=== PATIENT | male | born 1970 | race Caucasian/White ===

== ENCOUNTER 2016-12-27 21:42 | Emergency (ER) | payer OTHER ==
[~2016-12-27] VITALS: Ht 172.7 cm; Wt 86.1 kg
[2016-12-27 22:00] VITALS: TEMP 37.2; Ht 172.7 cm; Wt 86.1 kg
[2016-12-27] MEDS ORDERED: SERT50TA PO (22:01)
[2016-12-27 22:03] VITALS: O2SAT 96
[2016-12-27 22:43] LABS: BUN/CREATININE RATIO 9.6 (10-20); CALCIUM 8.7 mg/dl (8.5-10.1); CREATININE 0.9 mg/dl (0.60-1.40); MAGNESIUM 2.3 mg/dl (1.8-2.4); POTASSIUM 3.6 mmol/L (3.5-5.1)
[2016-12-27 22:55] LABS: HEMATOCRIT 42.2 % (42-52); MEAN CELL VOLUME 92.1 fL (80-100); MEAN CORPUSCULAR HEMOGLOBIN 31.9 pg (25-34); MEAN CORPUSCULAR HGB CONC 34.6 g/dl (32-36); MEAN PLATELET VOLUME 8.9 fL (7.4-10.4); PLATELET COUNT 94 K/uL (130-400); RED BLOOD COUNT 4.58 M/uL (4.7-6.1); WHITE BLOOD COUNT 2.69 K/uL (4.8-10.8)
[2016-12-27 22:56] LABS: BASO % 1.5 %; BASO ABS # 0.04 K/uL (0-0.2); COMPLETE YES; EOS % 1.9 %; IG% 0.4 %; LYMPH % 36.4 %; LYMPH ABS # 0.98 K/uL (1.2-3.4); NEUT % 46.8 %; PLT ESTIMATE DECREASED
[2016-12-28 01:41] VITALS: BP 122/79; PULSE 80; O2SAT 99
--- NOTE | 2016-12-28 05:03 | EMERGENCY ROOM VISIT NOTE ---
History First contact with patient: 21:51 Chief Complaint: ALCOHOL OVERDOSE Stated Complaint: ALCOHOL OVERDOSE Nursing Triage Summary: pt arrived bls from [facility] reported blew 0.362 reports having 12-15 beers reported untreated htn, and depression which he takes zoloft History of Present Illness The patient is a 46 year old male who presents to the Emergency Room with complaints of alcohol intoxication. Patient was found stumbling in the [facility] garage by police and EMS was summoned. Patient is a known alcoholic. Patient denies chest pain, dyspnea, abdominal pain, drug use or any other medical complaints. Patient states he has no one to come get him currently. No history of seizures or DTs from not drinking. Review of Systems See HPI for pertinent positives & negatives. A total of 10 systems reviewed and were otherwise negative. Past Medical/Surgical History Medical Problems: (1) ALCOHOL ABUSE-UNSPEC (2) DEPRESSIVE DISORDER NEC Social History Smoking Status: Never Smoker Alcohol Use: heavy Drug Use: none Marital Status: in relationship Housing Status: lives with family Occupation Status: employed Current/Historical Medications Scheduled Sertraline (Zoloft), 50 MG PO DAILY Allergies Coded Allergies: No Known Allergies (Unverified , 07/20/15) Physical Exam Vital Signs Date Time Temp Pulse Resp B/P (MAP) Pulse Ox O2 Delivery O2 Flow Rate FiO2 12/28/16 01:41 80 16 122/79 99 Room Air 12/27/16 23:00 95 21 93 Room Air 12/27/16 22:03 96 Room Air 12/27/16 22:03 96 Room Air 12/27/16 22:00 37.2 107 18 156/115 96 Room Air 12/27/16 21:53 103 Pain Rating (0-10): 0 Physical Exam PHYSICAL EXAM: VITALS: Vitals are noted on the nurse's note and reviewed by myself. Vital signs stable. GENERAL: Pleasant male with EtOH odor, in no acute distress, nondiaphoretic, well-developed well-nourished. The patient is visibly intoxicated. SKIN: The skin was without obvious lacerations, abrasions, or rashes. There is no tenting of the skin. Capillary reflex less than 2 seconds. HEENT: Normocephalic, atraumatic. PERRLA. EOMI. Conjunctiva with mild injection without icterus. Tympanic membranes without erythema or effusion bilaterally no hemotympanum. External auditory canals are clear. Nares patent bilaterally. No epistaxis. Oropharynx without erythema or exudate. Uvula midline. Oral mucosal moist. No lymphadenopathy. Neck is supple without cervical spine tenderness. HEART: Regular rate and rhythm without murmurs gallops or rubs. Peripheral pulses 2+. LUNGS: Clear to auscultation bilaterally without wheezes, rales or rhonchi. ABDOMEN: Positive bowel sounds x 4. Normal tympanic percussion. Soft, nontender, without masses or organomegaly. MUSCULOSKELETAL: Gross motor function of the upper and lower extremities intact. The patient has a staggering gait. NEUROLOGIC: The patient is visibly intoxicated. Once they were more sober they were alert and oriented to person place and time. Medical Decision & Procedures Laboratory Results 12/27/16 22:16 Red Blood Count 4.58, Mean Corpuscular Volume 92.1, Mean Corpuscular Hemoglobin 31.9, Mean Corpuscular Hemoglobin Concent 34.6, Mean Platelet Volume 8.9, Neutrophils (%) (Auto) 46.8, Lymphocytes (%) (Auto) 36.4, Monocytes (%) (Auto) 13.0, Eosinophils (%) (Auto) 1.9, Basophils (%) (Auto) 1.5, Neutrophils # (Auto ) 1.26, Lymphocytes # (Auto) 0.98, Monocytes # (Auto) 0.35, Eosinophils # (Auto ) 0.05, Basophils # (Auto) 0.04 12/27/16 22:16 Test 12/27/16 22:16 White Blood Count 2.69 K/uL (4.8-10.8) Red Blood Count 4.58 M/uL (4.7-6.1) Hemoglobin 14.6 g/dL (14.0-18.0) Hematocrit 42.2 % (42-52) Mean Corpuscular Volume 92.1 fL (80-100) Mean Corpuscular Hemoglobin 31.9 pg (25-34) Mean Corpuscular Hemoglobin Concent 34.6 g/dl (32-36) Platelet Count 94 K/uL (130-400) Mean Platelet Volume 8.9 fL (7.4-10.4) Neutrophils (%) (Auto) 46.8 % Lymphocytes (%) (Auto) 36.4 % Monocytes (%) (Auto) 13.0 % Eosinophils (%) (Auto) 1.9 % Basophils (%) (Auto) 1.5 % Neutrophils # (Auto) 1.26 K/uL (1.4-6.5) Lymphocytes # (Auto) 0.98 K/uL (1.2-3.4) Monocytes # (Auto) 0.35 K/uL (0.11-0.59) Eosinophils # (Auto) 0.05 K/uL (0-0.5) Basophils # (Auto) 0.04 K/uL (0-0.2) RDW Standard Deviation 45.9 fL (36.4-46.3) RDW Coefficient of Variation 13.9 % (11.5-14.5) Immature Granulocyte % (Auto) 0.4 % Immature Granulocyte # (Auto) 0.01 K/uL (0.00-0.02) Platelet Estimate DECREASED Red Blood Cell Morphology Unremarkable Anion Gap 13.0 mmol/L (3-11) Est Creatinine Clear Calc Drug Dose 107.1 ml/min Estimated GFR () 116.6 Estimated GFR (Non- 100.6 BUN/Creatinine Ratio 9.6 (10-20) Calcium Level 8.7 mg/dl (8.5-10.1) Magnesium Level 2.3 mg/dl (1.8-2.4) Ethyl Alcohol mg/dL 408.0 mg/dl (0-3) ED Course Prior records/ancillary studies reviewed. Triage Nursing notes reviewed. Additional history obtained from EMS. The patient's history was concerning for altered mental status and a possible alcohol overdose. Differential diagnosis: Etiologies such as alcohol intoxication, toxicologic, infection, hypoglycemia, electrolyte abnormalities, cardiac sources, intracerebral event, neurologic, as well as others were entertained. Physical examination: As above. The patient is clinically intoxicated. no trauma noted. ER treatment provided: Monitoring Aspiration precautions The patient was frequently reassessed. Diagnostic interpretation by me: Cardiac monitoring did not reveal any evidence of dysrhythmia. The labs reviewed. The patient's blood alcohol level was 400 mg/dL. The patient's history was reviewed once they were more coherent and their intoxication cleared. The patient states they have been in good health recently and had no medical complaints. The patient admitted to consuming alcohol. No additional concerning findings were noted. The patient complained of no symptoms to suggest assault. This appears to be consistent with an isolated overdose of alcohol. By the evaluation outlined above emergent etiologies such as trauma, infection, hypoglycemia, electrolyte abnormalities, cardiac sources, intracerebral event, neurologic,as well as others were deemed relatively unlikely. Patient was discharged home in the care of his family. The patient was informed about the findings as listed above. The patient was counseled on the dangers of excessive alcohol use. I gave my usual and customary discussion regarding this issue. All questions were answered and the patient was pleased with the treatment. Return instructions were outlined and the patient was discharged in stable condition once their mental status improved and a safe destination was confirmed. Outpatient prescription management: None Referral: The patient was referred back to their primary care physician for follow-up in 2 to 3 days for a recheck of their current condition. Medical Decision As above Impression Primary Impression: Alcohol abuse Departure Information Dispostion Home / Self-Care Condition GOOD Referrals Yosef Sultana M.D. Forms HOME CARE DOCUMENTATION FORM, IMPORTANT VISIT INFORMATION Patient Instructions Alcohol Abuse - [facility] Additional Instructions Keep well-hydrated. Follow up with family doctor as needed. No driving for the next 24 hours. Recommend no alcohol for the next 48 hours and avoid binge drinking in the future. Return to ER sooner for chest pain, abdominal pain, worsening signs or symptoms or as needed.
== END 2016-12-28 01:49 | disposition home or self-care (01) ==
LOC: EDBD 21:42 → C.EDC 21:47
DX: F10.10 Alcohol abuse, uncomplicated (principal); I10 Essential (primary) hypertension; F32.9 Major depressive disorder, single episode, unspecified; Z79.899 Other long term (current) drug therapy

== ENCOUNTER 2017-03-31 22:25 | Inpatient (IN) | payer OTHER ==
[~2017-03-31] VITALS: Ht 162.6 cm; Wt 85.1 kg
[~2017-03-31 22:25] MED LIST: SERT50TA PO
--- NOTE | 2017-03-31 23:24 | EMERGENCY ROOM VISIT NOTE ---
History Report prepared by Will: Judy Root Under the Supervision of: Dr. Oliver Lopez M.D. First contact with patient: 23:14 Chief Complaint: DETOX REQUEST Stated Complaint: ALCOHOLISM Nursing Triage Summary: Patient is requesting medical detox of ETOH. History of Present Illness The patient is a 46 year old male who presents to the Emergency Room with complaints of an alcohol detox request beginning today. The patient states that he feels uncomfortable telling doctors how much he drinks, but states that he drinks a lot. He reports that he only drinks beer. He reports that he was sober for 6 months 4 years ago. The patient states that his last drink was shortly prior to arrival. The patient denies a history of seizures, but states that he shakes in the morning when he does not have alcohol. He reports that he goes to AA meetings, and that sometimes he goes twice a day. The patient reports that he usually has a cough in the morning from post-nasal drip. The patient denies falls and injuries. He also denies suicidal ideation and hallucinations. The patient denies a family history of alcoholism. He reports that he has a history of depression, and states that he takes Zoloft. The patient denies a history of strokes and heart attacks. Source of History: patient Onset: today Position: other (global) Quality: other (alcohol detox) Associated Symptoms: + cough Review of Systems See HPI for pertinent positives & negatives. A total of 10 systems reviewed and were otherwise negative. Past Medical & Surgical Medical Problems: (1) ALCOHOL ABUSE-UNSPEC (2) DEPRESSIVE DISORDER NEC Family History No pertinent family history stated. Social History Smoking Status: Never Smoker Alcohol Use: heavy Drug Use: none Marital Status: in relationship Housing Status: lives with family Occupation Status: employed Current/Historical Medications Scheduled Sertraline (Zoloft), 50 MG PO DAILY Allergies Coded Allergies: No Known Allergies (Unverified , 04/01/17) Physical Exam Vital Signs Date Time Temp Pulse Resp B/P (MAP) Pulse Ox O2 Delivery O2 Flow Rate FiO2 04/01/17 00:39 112 14 170/101 97 Room Air 03/31/17 22:43 36.4 95 18 158/105 96 Room Air Physical Exam GENERAL: Patient is mildly intoxicated. Smells of alcohol. Well appearing and in no acute distress. HEAD: No evidence of Trauma. AT/NC EYES: Injected conjunctiva. Normal EOM. Pupils equal/reactive. ENT: Mucous membranes moist, no nasal congestion, . NECK: No step-offs, no adenopathy, no meningismus, trachea is midline. LUNGS: No dyspnea. Clear to auscultation and equal bilaterally. No wheeze, no rhonchi. HEART: Regular rate and rhythm. No murmurs, rubs, gallops appreciated. ABDOMEN: Soft, nontender, bowel sounds positive, no masses appreciated, no peritonitis. BACK: No midline tenderness, no CVA tenderness EXTREMITIES: Normal motion all extremities, no cyanosis, no edema. NEUROLOGIC: Intoxicated. Alert, oriented. No acute motor or sensory deficits, no focal weakness, cranial nerves grossly intact. Mild left facial droop ( chronic). SKIN: No rash, no jaundice, no diaphoresis. Medical Decision & Procedures Laboratory Results 03/31/17 23:40 Red Blood Count 4.92, Mean Corpuscular Volume 93.1, Mean Corpuscular Hemoglobin 33.7, Mean Corpuscular Hemoglobin Concent 36.2, Mean Platelet Volume 10.0, Neutrophils (%) (Auto) 52.1, Lymphocytes (%) (Auto) 33.1, Monocytes (%) (Auto) 11.6, Eosinophils (%) (Auto) 2.5, Basophils (%) (Auto) 0.7, Neutrophils # (Auto ) 2.28, Lymphocytes # (Auto) 1.45, Monocytes # (Auto) 0.51, Eosinophils # (Auto ) 0.11, Basophils # (Auto) 0.03 Test 03/31/17 23:40 04/01/17 00:00 White Blood Count 4.38 K/uL (4.8-10.8) Red Blood Count 4.92 M/uL (4.7-6.1) Hemoglobin 16.6 g/dL (14.0-18.0) Hematocrit 45.8 % (42-52) Mean Corpuscular Volume 93.1 fL (80-100) Mean Corpuscular Hemoglobin 33.7 pg (25-34) Mean Corpuscular Hemoglobin Concent 36.2 g/dl (32-36) Platelet Count 137 K/uL (130-400) Mean Platelet Volume 10.0 fL (7.4-10.4) Neutrophils (%) (Auto) 52.1 % Lymphocytes (%) (Auto) 33.1 % Monocytes (%) (Auto) 11.6 % Eosinophils (%) (Auto) 2.5 % Basophils (%) (Auto) 0.7 % Neutrophils # (Auto) 2.28 K/uL (1.4-6.5) Lymphocytes # (Auto) 1.45 K/uL (1.2-3.4) Monocytes # (Auto) 0.51 K/uL (0.11-0.59) Eosinophils # (Auto) 0.11 K/uL (0-0.5) Basophils # (Auto) 0.03 K/uL (0-0.2) RDW Standard Deviation 43.8 fL (36.4-46.3) RDW Coefficient of Variation 13.0 % (11.5-14.5) Immature Granulocyte % (Auto) 0.0 % Immature Granulocyte # (Auto) 0.00 K/uL (0.00-0.02) Prothrombin Time 10.6 SECONDS (9.0-12.0) Prothromb Time International Ratio 1.0 (0.9-1.1) Magnesium Level 2.3 mg/dl (1.8-2.4) Total Bilirubin 0.6 mg/dl (0.2-1) Aspartate Amino Transf (AST/SGOT) 37 U/L (15-37) Alanine Aminotransferase (ALT/SGPT) 36 U/L (12-78) Alkaline Phosphatase 48 U/L (45-117) Total Protein 7.7 gm/dl (6.4-8.2) Albumin 3.8 gm/dl (3.4-5.0) Globulin 3.9 gm/dl (2.5-4.0) Albumin/Globulin Ratio 1.0 (0.9-2) Thyroid Stimulating Hormone (TSH) 3.610 uIu/ml (0.300-4.500) Salicylates Level < 1.7 mg/dl (2.8-20) Acetaminophen Level < 2 ug/ml (10-30) Ethyl Alcohol mg/dL 292.0 mg/dl (0-3) Urine Color YELLOW Urine Appearance CLEAR (CLEAR) Urine pH 6.0 (4.5-7.5) Urine Specific [place] 1.011 (1.000-1.030) Urine Protein NEG (NEG) Urine Glucose (UA) NEG (NEG) Urine Ketones NEG (NEG) Urine Occult Blood NEG (NEG) Urine Nitrite NEG (NEG) Urine Bilirubin NEG (NEG) Urine Urobilinogen NEG (NEG) Urine Leukocyte Esterase NEG (NEG) Urine WBC (Auto) 0 /hpf (0-5) Urine RBC (Auto) 0-4 /hpf (0-4) Urine Hyaline Casts (Auto) 0 /lpf (0-5) Urine Epithelial Cells (Auto) 0-5 /lpf (0-5) Urine Bacteria (Auto) NEG (NEG) Urine Opiates Screen NEG (NEG) Urine Methadone, Qualitative NEG (NEG) Urine Barbiturates NEG (NEG) Urine Phencyclidine (PCP) Level NEG (NEG) Ur Amphetamine/Methamphetamine NEG (NEG) MDMA (Ecstasy) Screen NEG (NEG) Urine Benzodiazepines Screen NEG (NEG) Urine Cocaine Metabolite NEG (NEG) Urine Marijuana (THC) NEG (NEG) Laboratory results as reviewed by me. Medications Administered Medications (Trade) Dose Ordered Sig/Venkat Route Start Time Stop Time Status Last Admin Dose Admin Multivitamins 10 ml/Thiamine HCl 100 mg/Folic Acid 1 mg/Sodium Chloride 1,011.2 ml @ 500 mls/ hr Q2H2M ONCE IV 03/31/17 23:30 04/01/17 01:31 DC 04/01/17 00:08 500 MLS/HR ED Course 2318: The patient was evaluated in room A8. A complete history and physical exam was performed. 2330: Ordered Multivitamins 10 ml/Thiamine HCl 100 mg/ Folic Acid 1 mg/Sodium Chloride 1,011.2 ml @ 500 mls/hr IV. 0045: Discussed the patient's case with Dr. Wagner. The patient will be evaluated for further treatment and disposition. 0050: Upon reevaluation, the patient is resting. Discussed results and treatment plan with the patient. He verbalized understanding and agreement with the treatment plan. The patient will be evaluated for further management. Medical Decision 46 yr old alcoholic male who arrives intoxicated requesting help with detox. He notes recently went to PCP which resulted in his [employer] driver's license being suspended. This has lead to him questioning life though he denies suicidal/ homicidal ideation. Drinking case of beer daily for 4 years. No pause long enough to have full DTs though notes even awaking in am needs etoh to function without shaking. Suspect he would be prime candidate to have fulminant DTs if this is the case. Clearly not doing well with getting in to rehab and I suspect no rehab will take him until he is medically clear. With inability to get this figured out at this hour I have asked hospitalist evaluation of patient. Pt given banana bag given history. No clear electrolyte nor liver issues by lab at least. No other drugs in system. Etoh quite elevated for someone that appears as sober as he dose. Medication Reconcilliation Current Medication List: was personally reviewed by me Blood Pressure Screening Patient's blood pressure: Elevated blood pressure Will be monitored by hospitalist. Consults Time Called: 9 Consulting Physician: Dr. Wagner Returned Call: [phone] Discussed the patient's case. The patient will be evaluated for further treatment and disposition. Impression Primary Impression: Alcohol withdrawal Additional Impression: Depression Scribe Attestation The scribe's documentation has been prepared under my direction and personally reviewed by me in its entirety. I confirm that the note above accurately reflects all work, treatment, procedures, and medical decision making performed by me. Departure Information Dispostion Being Evaluated By Hospitalist Referrals Zhang Weinstein MD (PCP) Patient Instructions My [facility] Problem Qualifiers
[2017-03-31] MEDS ORDERED: MULTI-VITAMIN INFUSION INJ 10 ML, THIAMINE HCL INJ 100 MG, FoLIC ACID INJ 1 MG in SODIU... IV ONE (23:30)
[2017-03-31 23:53] LABS: BASO % 0.7 %; BASO ABS # 0.03 K/uL (0-0.2); COMPLETE YES; EOS % 2.5 %; HEMATOCRIT 45.8 % (42-52); LYMPH % 33.1 %; LYMPH ABS # 1.45 K/uL (1.2-3.4); MEAN CELL VOLUME 93.1 fL (80-100); MEAN CORPUSCULAR HEMOGLOBIN 33.7 pg (25-34); MEAN CORPUSCULAR HGB CONC 36.2 g/dl (32-36); MONO % 11.6 %; NEUT % 52.1 %; PLATELET COUNT 137 K/uL (130-400); RED BLOOD COUNT 4.92 M/uL (4.7-6.1); WHITE BLOOD COUNT 4.38 K/uL (4.8-10.8)
[2017-04-01] VITALS (13 sets, daily range): BP systolic 128–184; BP diastolic 77–100; PULSE 60–107; TEMP 36.6–37.3; O2SAT 92–98; Ht 162.6 cm; Wt 85.1 kg
[2017-04-01 00:16] LABS: BUN/CREATININE RATIO 6.9 (10-20); CALCIUM 8.5 mg/dl (8.5-10.1); CREATININE 0.89 mg/dl (0.60-1.40); MAGNESIUM 2.3 mg/dl (1.8-2.4); POTASSIUM 3.6 mmol/L (3.5-5.1)
[2017-04-01 00:27] LABS: THYROID STIMULATING HORMONE 3.61 uIu/ml (0.300-4.500)
[2017-04-01 00:36] LABS: MANUAL MICROSCOPIC REQUIRED? NO; REVIEW REQ? NO; URINE APPEARANCE CLEAR (CLEAR); URINE BILIRUBIN NEG (NEG); URINE COLOR YELLOW; URINE EPITHELIAL CELL AUTO 0-5 /lpf (0-5); URINE NITRITE NEG (NEG); URINE SPECIFIC GRAVITY 1.011 (1.000-1.030); UROBILINOGEN NEG (NEG); ZZUR CULT IF INDIC CLEAN CATCH NO
[2017-04-01 00:38] LABS: ACETAMINOPHEN < 2 ug/ml (10-30)
--- NOTE | 2017-04-01 00:53 | History and Physical ---
History & Physical Date & Time of Service: Apr 01, 2017 at 00:53 Chief Complaint: Alcoholism Primary Care Physician: No Doctor, Assigned History of Present Illness Source: patient Patient is a 46 yr male with PMH of alcohol abuse disorder and depression presents with history of ongoing alcohol abuse, Insomnia and requests to get alcohol detox. Patient was previously at [facility] 4 yrs ago for inpatient rehab but relapsed within 6 months duration. She states he drinks at least a case of beer on daily basis and states he had problems with sleep and undergoes through DTs everyday. Denies any history of seizures. He attends AA meetings. Denies any history of headache, head trauma, falls, LOC, hallucinations, suicidal ideation. Also denies any history of chest pain, SOB, palpitations, dizziness, pedal edema, fever, chills, change in vision, nausea, vomiting, abdominal pain, diarrhea, dysuria. Past Medical/Surgical History Medical Problems: (1) ALCOHOL ABUSE-UNSPEC Status: Resolved (2) DEPRESSIVE DISORDER NEC Status: Chronic Family History Father: CHF, DM Mother:Lupus, CHF Social History Smoking Status: Never Smoker Smokeless Tobacco Use: Yes Alcohol Use: heavy Drug Use: none Marital Status: in relationship Occupational Status: employed Multi-Drug Resistant Organisms History of MDRO: No Allergies Coded Allergies: No Known Allergies (Unverified , 04/01/17) Home Medications Scheduled Sertraline (Zoloft), 50 MG PO DAILY Review of Systems See HPI for pertinent positives & negatives. A total of 10 systems reviewed and were otherwise negative. Physical Exam Vital Signs Date Time Temp Pulse Resp B/P (MAP) Pulse Ox O2 Delivery O2 Flow Rate FiO2 04/01/17 00:39 112 14 170/101 97 Room Air 03/31/17 22:43 36.4 95 18 158/105 96 Room Air General Appearance: WD/WN, no apparent distress Head: normocephalic, atraumatic Eyes: normal inspection, PERRL, EOMI, sclerae normal ENT: normal ENT inspection, hearing grossly normal Neck: supple, no JVD, trachea midline Respiratory/Chest: chest non-tender, lungs clear, normal breath sounds, no respiratory distress, no accessory muscle use Cardiovascular: regular rate, rhythm, no edema, no murmur Abdomen/GI: normal bowel sounds, non tender, soft Back: normal inspection Extremities/Musculoskelatal: normal inspection, no pedal edema Neurologic/Psych: counter attendant II-XII nml as tested, no motor/sensory deficits, alert, normal mood/affect, oriented x 3 Skin: normal color, warm/dry Diagnostics Laboratory Results Results Past 24 Hours Test 03/31/17 23:40 04/01/17 00:00 Range/Units White Blood Count 4.38 4.8-10.8 K/uL Red Blood Count 4.92 4.7-6.1 M/uL Hemoglobin 16.6 14.0-18.0 g/dL Hematocrit 45.8 42-52 % Mean Corpuscular Volume 93.1 80-100 fL Mean Corpuscular Hemoglobin 33.7 25-34 pg Mean Corpuscular Hemoglobin Concent 36.2 32-36 g/dl Platelet Count 137 130-400 K/uL Mean Platelet Volume 10.0 7.4-10.4 fL Neutrophils (%) (Auto) 52.1 % Lymphocytes (%) (Auto) 33.1 % Monocytes (%) (Auto) 11.6 % Eosinophils (%) (Auto) 2.5 % Basophils (%) (Auto) 0.7 % Neutrophils # (Auto) 2.28 1.4-6.5 K/uL Lymphocytes # (Auto) 1.45 1.2-3.4 K/uL Monocytes # (Auto) 0.51 0.11-0.59 K/uL Eosinophils # (Auto) 0.11 0-0.5 K/uL Basophils # (Auto) 0.03 0-0.2 K/uL RDW Standard Deviation 43.8 36.4-46.3 fL RDW Coefficient of Variation 13.0 11.5-14.5 % Immature Granulocyte % (Auto) 0.0 % Immature Granulocyte # (Auto) 0.00 0.00-0.02 K/uL Sodium Level 139 136-145 mmol/L Potassium Level 3.6 3.5-5.1 mmol/L Chloride Level 101 98-107 mmol/L Carbon Dioxide Level 25 21-32 mmol/L Anion Gap 13.0 3-11 mmol/L Blood Urea Nitrogen 6 7-18 mg/dl Creatinine 0.89 0.60-1.40 mg/dl Est Creatinine Clear Calc Drug Dose 100.4 ml/min Estimated GFR () 117.2 Estimated GFR (Non- 101.1 BUN/Creatinine Ratio 6.9 10-20 Random Glucose 88 70-99 mg/dl Calcium Level 8.5 8.5-10.1 mg/dl Magnesium Level 2.3 1.8-2.4 mg/dl Total Bilirubin 0.6 0.2-1 mg/dl Aspartate Amino Transf (AST/SGOT) 37 15-37 U/L Alanine Aminotransferase (ALT/SGPT) 36 12-78 U/L Alkaline Phosphatase 48 45-117 U/L Total Protein 7.7 6.4-8.2 gm/dl Albumin 3.8 3.4-5.0 gm/dl Globulin 3.9 2.5-4.0 gm/dl Albumin/Globulin Ratio 1.0 0.9-2 Thyroid Stimulating Hormone (TSH) 3.610 0.300-4.500 uIu/ml Salicylates Level < 1.7 2.8-20 mg/dl Acetaminophen Level < 2 10-30 ug/ml Ethyl Alcohol mg/dL 292.0 0-3 mg/dl Urine Color YELLOW Urine Appearance CLEAR CLEAR Urine pH 6.0 4.5-7.5 Urine Specific [place] 1.011 1.000-1.030 Urine Protein NEG NEG Urine Glucose (UA) NEG NEG Urine Ketones NEG NEG Urine Occult Blood NEG NEG Urine Nitrite NEG NEG Urine Bilirubin NEG NEG Urine Urobilinogen NEG NEG Urine Leukocyte Esterase NEG NEG Urine WBC (Auto) 0 0-5 /hpf Urine RBC (Auto) 0-4 0-4 /hpf Urine Hyaline Casts (Auto) 0 0-5 /lpf Urine Epithelial Cells (Auto) 0-5 0-5 /lpf Urine Bacteria (Auto) NEG NEG Impression Assessment and Plan Alcohol Abuse disorder: Alcohol level:292 Tox Screen: negative Monitor for withdrawal seizure precautions Alcohol withdrawal protocol with gabapentin, Ativan PRN Check Vitam, B12, Thiamine levels Banana Bag LFTs normal Hypertension: Not on meds as out patient Labetalol PRN Depression/Insomnia: Continue Zoloft DVT Px: Lovenox SQ Code Status: Full Code
[2017-04-01 00:55] LABS: BENZODIAZEPINE, URINE NEG (NEG); COCAINE,URINE NEG (NEG); PHENCYCLIDINE, URINE NEG (NEG)
[2017-04-01] MEDS ORDERED: ONDANSETRON INJ 2 MG/ML 2 ML VIAL IV PRN (01:00)
[2017-04-01] MEDS ORDERED: ACETAMINOPHEN 325 MG TAB PO PRN (01:00)
[2017-04-01] MEDS ORDERED: LABETALOL HCL IV 5 MG/ML 20ML IV PRN (01:30)
[2017-04-01] MEDS ORDERED: LORAZEPAM 1 MG TAB PO PRN (01:30)
[2017-04-01] MEDS ORDERED: LORAZEPAM 2 MG/ML 1 ML VIAL IV PRN (01:30)
[2017-04-01] MEDS ORDERED: GABAPENTIN 600 MG TAB PO STA (02:07)
[2017-04-01 03:07] LABS: PROTHROMBIN TIME (PATIENT) 10.6 SECONDS (9.0-12.0)
[2017-04-01 03:18] LABS: BUN/CREATININE RATIO 6.2 (10-20); CALCIUM 8.1 mg/dl (8.5-10.1); CREATININE 0.96 mg/dl (0.60-1.40); POTASSIUM 3.9 mmol/L (3.5-5.1)
[2017-04-01] MEDS ORDERED: INFLUENZA VIRUS QUAD VACCINE 0.5 ML SYR IM. ONE (03:30)
[2017-04-01] MEDS ORDERED: INFLUENZA ADMINISTRATION CHARGE ONE (03:30)
[2017-04-01] MEDS: GABAPENTIN 600MG Q6H DOSE PO SCH ×2 (07:47→15:04)
[2017-04-01] MEDS: SERTRALINE HCL 50 MG TAB PO SCH (09:28)
[2017-04-01] MEDS: ENOXAPARIN 40 MG/0.4 ML SYR SC SCH (09:32)
[2017-04-01] MEDS: NICOTINE 21 MG/24 HR TDSY TD SCH (09:33)
[2017-04-01] MEDS: MULTI-VITAMIN INFUSION INJ 10 ML, THIAMINE HCL INJ 100 MG, FoLIC ACID INJ 1 MG in SODIU... IV SCH (10:15)
[2017-04-01] MEDS: LORAZEPAM INJ 1 MG in SYRINGE 0.5 ML IV PRN ×3 (10:23→21:13)
--- NOTE | 2017-04-01 10:23 | Progress Note ---
Medicine Progress Note Date & Time of Visit: Apr 01, 2017 at 10:16. Subjective seen resting in bed, comfortable alert, oriented x 3, pleasant states he feels somewhat anxious- used to being "on the go", also having "fear of the unknown" in terms of Alcohol rehab denies hallucinations, sweating, palpitations, chest pain, dizziness no other symptoms Objective Last 8 Hrs Date Time Temp Pulse Resp B/P (MAP) Pulse Ox O2 Delivery O2 Flow Rate FiO2 04/01/17 08:00 96 Room Air 04/01/17 07:25 36.6 107 16 142/99 (113) 96 04/01/17 03:13 98 Room Air 04/01/17 03:01 36.7 96 16 128/77 (94) 96 Room Air 04/01/17 02:21 80 162/100 (120) Physical Exam: General- oriented x 3, not in distress, speaks in sentences with no effort Head- atraumatic Eyes- PERRL, EOMI, anicteric ENT- oropharynx clear Neck- supple, no JVD, no adenopathy, no thyromegaly Lungs- clear to auscultation b/l Heart- regular rhythm; no murmur, normal rate Abdomen- normal bowel sounds, soft, nontender Extremities- no pretibial edema, no calf tenderness, mild hand tremors Neuro- alert, oriented x 3 no gross focal deficits, Skin- warm & dry Psych- denies depression symptoms, feels somewhat anxious, denies suicidality Laboratory Results: Last 24 Hours Test 03/31/17 23:40 04/01/17 00:00 04/01/17 02:45 White Blood Count 4.38 K/uL Red Blood Count 4.92 M/uL Hemoglobin 16.6 g/dL Hematocrit 45.8 % Mean Corpuscular Volume 93.1 fL Mean Corpuscular Hemoglobin 33.7 pg Mean Corpuscular Hemoglobin Concent 36.2 g/dl Platelet Count 137 K/uL Mean Platelet Volume 10.0 fL Neutrophils (%) (Auto) 52.1 % Lymphocytes (%) (Auto) 33.1 % Monocytes (%) (Auto) 11.6 % Eosinophils (%) (Auto) 2.5 % Basophils (%) (Auto) 0.7 % Neutrophils # (Auto) 2.28 K/uL Lymphocytes # (Auto) 1.45 K/uL Monocytes # (Auto) 0.51 K/uL Eosinophils # (Auto) 0.11 K/uL Basophils # (Auto) 0.03 K/uL RDW Standard Deviation 43.8 fL RDW Coefficient of Variation 13.0 % Immature Granulocyte % (Auto) 0.0 % Immature Granulocyte # (Auto) 0.00 K/uL Prothrombin Time 10.6 SECONDS Prothromb Time International Ratio 1.0 Sodium Level 139 mmol/L 143 mmol/L Potassium Level 3.6 mmol/L 3.9 mmol/L Chloride Level 101 mmol/L 105 mmol/L Carbon Dioxide Level 25 mmol/L 28 mmol/L Anion Gap 13.0 mmol/L 10.0 mmol/L Blood Urea Nitrogen 6 mg/dl 6 mg/dl Creatinine 0.89 mg/dl 0.96 mg/dl Est Creatinine Clear Calc Drug Dose 100.4 ml/min 92.1 ml/min Estimated GFR () 117.2 107.9 Estimated GFR (Non- 101.1 93.1 BUN/Creatinine Ratio 6.9 6.2 Random Glucose 88 mg/dl 91 mg/dl Calcium Level 8.5 mg/dl 8.1 mg/dl Magnesium Level 2.3 mg/dl Total Bilirubin 0.6 mg/dl Aspartate Amino Transf (AST/SGOT) 37 U/L Alanine Aminotransferase (ALT/SGPT) 36 U/L Alkaline Phosphatase 48 U/L Total Protein 7.7 gm/dl Albumin 3.8 gm/dl Globulin 3.9 gm/dl Albumin/Globulin Ratio 1.0 Thyroid Stimulating Hormone (TSH) 3.610 uIu/ml Salicylates Level < 1.7 mg/dl Acetaminophen Level < 2 ug/ml Ethyl Alcohol mg/dL 292.0 mg/dl Urine Color YELLOW Urine Appearance CLEAR Urine pH 6.0 Urine Specific [place] 1.011 Urine Protein NEG Urine Glucose (UA) NEG Urine Ketones NEG Urine Occult Blood NEG Urine Nitrite NEG Urine Bilirubin NEG Urine Urobilinogen NEG Urine Leukocyte Esterase NEG Urine WBC (Auto) 0 /hpf Urine RBC (Auto) 0-4 /hpf Urine Hyaline Casts (Auto) 0 /lpf Urine Epithelial Cells (Auto) 0-5 /lpf Urine Bacteria (Auto) NEG Urine Opiates Screen NEG Urine Methadone, Qualitative NEG Urine Barbiturates NEG Urine Phencyclidine (PCP) Level NEG Ur Amphetamine/Methamphetamine NEG MDMA (Ecstasy) Screen NEG Urine Benzodiazepines Screen NEG Urine Cocaine Metabolite NEG Urine Marijuana (THC) NEG Vitamin B12 Level 610 pg/mL Folate > 24.00 ng/mL Assessment & Plan 46 year old male with history of Alcoholism, Depression, Smoking presenting with alcohol intoxication. ALCOHOL INTOXICATION ALCOHOLISM - has mild tremors and anxiety - on Alcohol withdrawal protocol including Gabapentin taper, Ativan PRN based on scoring system add Ativan IV PRN for anxiety on Banana Bag then NSS - case management consulted as patient requesting referral to Rehab program HISTORY OF DEPRESSION - states mood is fine except for anxiety - also, QT prolonged at 490 and is on Sertraline repeat EKG today - Psych consulted - monitor in Tele HISTORY OF SMOKING - in nicotine patch HYPERTENSION - no history in the past essential hypertension vs. stress - monitor - PRN clonidine for now DVT proph Lovenox Full Code Dispo patient requesting referral to rehab Current Inpatient Medications: Current Inpatient Medications Medications (Trade) Dose Ordered Sig/Venkat Route Start Time Stop Time Status Last Admin Dose Admin Enoxaparin Sodium (Lovenox Inj) 40 mg Q24H SC 04/01/17 09:00 05/01/17 08:59 04/01/17 09:32 40 MG Acetaminophen (Tylenol Tab) 650 mg Q4H PRN PO 04/01/17 01:00 05/01/17 00:59 Ondansetron HCl (Zofran Inj) 4 mg Q6H PRN IV 04/01/17 01:00 05/01/17 00:59 Sertraline HCl (Zoloft Tab) 100 mg DAILY PO 04/01/17 09:00 05/01/17 08:59 04/01/17 09:28 100 MG Lorazepam (Ativan Tab) PRN Dosing -Active Protocol UD PRN PO 04/01/17 01:30 05/01/17 01:29 Lorazepam (Ativan Inj) 1 mg ONE PRN IV 04/01/17 01:30 Multivitamins 10 ml/Thiamine HCl 100 mg/Folic Acid 1 mg/Sodium Chloride 1,011.2 ml @ 100 mls/ hr DAILY IV 04/01/17 09:00 04/06/17 08:59 Nicotine (Nicoderm Cq 21MG Patch) 1 patch QAM TD 04/01/17 09:00 05/01/17 08:59 04/01/17 09:33 1 PATCH Miscellaneous (Remove Nicoderm Patch) 1 ea HS N/A 04/01/17 21:00 05/01/17 20:59 Labetalol HCl (Normodyne IV) 10 mg Q6H PRN IV 04/01/17 01:30 05/01/17 01:29 04/01/17 02:45 10 MG Gabapentin (Neurontin Tab) 600 mg Q6H PO 04/01/17 08:00 04/01/17 14:01 04/01/17 07:47 600 MG Gabapentin (Neurontin Tab) 600 mg Q8H PO 04/01/17 22:00 04/02/17 14:01 Gabapentin (Neurontin Tab) 600 mg Q12H PO 04/03/17 02:00 04/03/17 14:01 Gabapentin (Neurontin Tab) 600 mg Q24H PO 04/04/17 14:00 04/04/17 14:01 Lorazepam 1 mg/ Syringe 1 ml @ 0.5 mls/min Q4H PRN IV 04/01/17 10:00 05/01/17 09:59
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
[2017-04-01] MEDS: CLONIDINE HCL 0.1 MG TAB PO PRN (15:27)
[2017-04-01] MEDS: NSS + 20MEQ KCL 1000ML 1,000 ML IV SCH ×2 (19:44→19:53)
[2017-04-01] MEDS: GABAPENTIN 600MG Q8H DOSE PO SCH (21:14)
[2017-04-02] VITALS (10 sets, daily range): BP systolic 124–169; BP diastolic 84–103; PULSE 60–79; TEMP 36.6–36.9; O2SAT 95–98
[2017-04-02] MEDS: CLONIDINE HCL 0.1 MG TAB PO PRN ×3 (04:40→21:18)
[2017-04-02] MEDS: GABAPENTIN 600MG Q8H DOSE PO SCH ×2 (06:07→14:47)
[2017-04-02] MEDS: NSS + 20MEQ KCL 1000ML 1,000 ML IV SCH ×2 (06:07→17:57)
[2017-04-02 06:36] LABS: BASO % 0.7 %; BASO ABS # 0.03 K/uL (0-0.2); COMPLETE YES; EOS % 1.9 %; HEMATOCRIT 41.3 % (42-52); IG% 0.2 %; LYMPH % 18.4 %; LYMPH ABS # 0.79 K/uL (1.2-3.4); MEAN CELL VOLUME 95.8 fL (80-100); MEAN CORPUSCULAR HEMOGLOBIN 33.4 pg (25-34); MEAN CORPUSCULAR HGB CONC 34.9 g/dl (32-36); MEAN PLATELET VOLUME 9.6 fL (7.4-10.4); MONO % 13.5 %; NEUT % 65.3 %; PLATELET COUNT 122 K/uL (130-400); RED BLOOD COUNT 4.31 M/uL (4.7-6.1); WHITE BLOOD COUNT 4.29 K/uL (4.8-10.8)
[2017-04-02] MEDS: LORAZEPAM INJ 1 MG in SYRINGE 0.5 ML IV PRN ×3 (06:58→21:10)
[2017-04-02 07:12] LABS: BUN/CREATININE RATIO 8.4 (10-20); CALCIUM 8.5 mg/dl (8.5-10.1); CREATININE 0.96 mg/dl (0.60-1.40); MAGNESIUM 2.1 mg/dl (1.8-2.4); POTASSIUM 3.9 mmol/L (3.5-5.1)
[2017-04-02] MEDS: SERTRALINE HCL 50 MG TAB PO SCH (08:25)
[2017-04-02] MEDS: NICOTINE 21 MG/24 HR TDSY TD SCH (08:25)
[2017-04-02] MEDS: ENOXAPARIN 40 MG/0.4 ML SYR SC SCH (08:25)
[2017-04-02] MEDS: MULTI-VITAMIN INFUSION INJ 10 ML, THIAMINE HCL INJ 100 MG, FoLIC ACID INJ 1 MG in SODIU... IV SCH (17:57)
[2017-04-02] MEDS ORDERED: AMLODIPINE BESYLATE 5 MG TAB PO ONE (18:30)
--- NOTE | 2017-04-02 18:49 | Progress Note ---
Medicine Progress Note Date & Time of Visit: Apr 02, 2017 at 11:36. Subjective patient seen sitting up in bed, comfortable states he feels fine overall denies tremors, confusion, sweating, hallucinations anxiety is none to mild denies headache, dizziness, nausea/vomiting, chest pain, dyspnea no other symptoms Objective Last 8 Hrs Date Time Temp Pulse Resp B/P (MAP) Pulse Ox O2 Delivery O2 Flow Rate FiO2 04/02/17 11:15 36.7 67 18 147/86 (106) 97 04/02/17 08:37 78 152/87 (108) 04/02/17 08:00 Room Air 04/02/17 07:32 36.9 64 18 169/103 (125) 96 04/02/17 04:06 36.6 60 18 169/93 (118) 95 Room Air 04/02/17 04:00 Room Air Physical Exam: General- oriented x 3, not in distress, speaks in sentences with no effort Eyes- EOMI, anicteric Neck- supple, no JVD Lungs- clear to auscultation b/l Heart- regular rhythm; no murmur, normal rate Abdomen- normal bowel sounds, soft, nontender Extremities- no pretibial edema, no calf tenderness, NO hand tremors Neuro- alert, oriented x 3 no gross focal deficits, Skin- warm & dry Psych- denies depression symptoms, anxiety has improved, denies suicidality Laboratory Results: Last 24 Hours Test 04/02/17 06:25 White Blood Count 4.29 K/uL Red Blood Count 4.31 M/uL Hemoglobin 14.4 g/dL Hematocrit 41.3 % Mean Corpuscular Volume 95.8 fL Mean Corpuscular Hemoglobin 33.4 pg Mean Corpuscular Hemoglobin Concent 34.9 g/dl Platelet Count 122 K/uL Mean Platelet Volume 9.6 fL Neutrophils (%) (Auto) 65.3 % Lymphocytes (%) (Auto) 18.4 % Monocytes (%) (Auto) 13.5 % Eosinophils (%) (Auto) 1.9 % Basophils (%) (Auto) 0.7 % Neutrophils # (Auto) 2.80 K/uL Lymphocytes # (Auto) 0.79 K/uL Monocytes # (Auto) 0.58 K/uL Eosinophils # (Auto) 0.08 K/uL Basophils # (Auto) 0.03 K/uL RDW Standard Deviation 45.0 fL RDW Coefficient of Variation 13.0 % Immature Granulocyte % (Auto) 0.2 % Immature Granulocyte # (Auto) 0.01 K/uL Sodium Level 138 mmol/L Potassium Level 3.9 mmol/L Chloride Level 103 mmol/L Carbon Dioxide Level 28 mmol/L Anion Gap 7.0 mmol/L Blood Urea Nitrogen 8 mg/dl Creatinine 0.96 mg/dl Est Creatinine Clear Calc Drug Dose 92.5 ml/min Estimated GFR () 107.9 Estimated GFR (Non- 93.1 BUN/Creatinine Ratio 8.4 Random Glucose 95 mg/dl Calcium Level 8.5 mg/dl Magnesium Level 2.1 mg/dl Assessment & Plan 46 year old male with history of Alcoholism, Depression, Smoking presenting with alcohol intoxication. ALCOHOL INTOXICATION ALCOHOLISM - has mild tremors and anxiety - on Alcohol withdrawal protocol including Gabapentin taper, Ativan PRN based on scoring system added Ativan IV PRN for anxiety on Banana Bag then NSS -- no overt signs of withdrawal at this time continue above medications case management on board re: possible inpatient rehab DEPRESSION - states mood is fine except for anxiety - Psych consulted Sertraline increased to 100mg daily monitor EKG for prolonged QT HYPERTENSION - remains elevated add Amlodipine 5mg po daily - PRN clonidine monitor HISTORY OF SMOKING - in nicotine patch DVT proph Lovenox Full Code Dispo patient requesting referral to rehab Current Inpatient Medications: Current Inpatient Medications Medications (Trade) Dose Ordered Sig/Venkat Route Start Time Stop Time Status Last Admin Dose Admin Enoxaparin Sodium (Lovenox Inj) 40 mg Q24H SC 04/01/17 09:00 05/01/17 08:59 04/01/17 09:32 40 MG Acetaminophen (Tylenol Tab) 650 mg Q4H PRN PO 04/01/17 01:00 05/01/17 00:59 Ondansetron HCl (Zofran Inj) 4 mg Q6H PRN IV 04/01/17 01:00 05/01/17 00:59 Sertraline HCl (Zoloft Tab) 100 mg DAILY PO 04/01/17 09:00 05/01/17 08:59 04/02/17 08:25 100 MG Lorazepam (Ativan Tab) PRN Dosing -Active Protocol UD PRN PO 04/01/17 01:30 05/01/17 01:29 Lorazepam (Ativan Inj) 1 mg ONE PRN IV 04/01/17 01:30 Multivitamins 10 ml/Thiamine HCl 100 mg/Folic Acid 1 mg/Sodium Chloride 1,011.2 ml @ 100 mls/ hr DAILY IV 04/01/17 09:00 04/06/17 08:59 04/01/17 10:15 100 MLS/HR Nicotine (Nicoderm Cq 21MG Patch) 1 patch QAM TD 04/01/17 09:00 05/01/17 08:59 04/02/17 08:25 1 PATCH Miscellaneous (Remove Nicoderm Patch) 1 ea HS N/A 04/01/17 21:00 05/01/17 20:59 04/01/17 20:51 1 EA Gabapentin (Neurontin Tab) 600 mg Q8H PO 04/01/17 22:00 04/02/17 14:01 04/02/17 06:07 600 MG Gabapentin (Neurontin Tab) 600 mg Q12H PO 04/03/17 02:00 04/03/17 14:01 Gabapentin (Neurontin Tab) 600 mg Q24H PO 04/04/17 14:00 04/04/17 14:01 Potassium Chloride/Sodium Chloride 1,000 ml @ 100 mls/hr Q10H IV 04/01/17 10:15 05/01/17 10:14 04/02/17 06:07 100 MLS/HR Clonidine HCl (Catapres Tab) 0.1 mg Q6H PRN PO 04/01/17 10:15 05/01/17 10:14 04/02/17 04:40 0.1 MG Lorazepam 1 mg/ Syringe 1 ml @ 0.5 mls/min Q3H PRN IV 04/01/17 16:15 05/01/17 09:59 04/02/17 06:58 0.5 MLS/MIN
[2017-04-03] MEDS: LORAZEPAM INJ 1 MG in SYRINGE 0.5 ML IV PRN ×2 (00:41→05:50)
[2017-04-03] MEDS ORDERED: GABAPENTIN 600MG Q12H DOSE PO SCH (02:00)
[2017-04-03] MEDS: NSS + 20MEQ KCL 1000ML 1,000 ML IV SCH (02:02)
[2017-04-03 03:54] VITALS: BP 148/90; PULSE 68; TEMP 36.5; O2SAT 97
[2017-04-03 06:08] LABS: BASO % 0.8 %; BASO ABS # 0.03 K/uL (0-0.2); COMPLETE YES; EOS % 3.1 %; HEMATOCRIT 40.7 % (42-52); LYMPH % 24.1 %; LYMPH ABS # 0.92 K/uL (1.2-3.4); MEAN CELL VOLUME 94.2 fL (80-100); MEAN CORPUSCULAR HEMOGLOBIN 33.3 pg (25-34); MEAN CORPUSCULAR HGB CONC 35.4 g/dl (32-36); MEAN PLATELET VOLUME 9.8 fL (7.4-10.4); MONO % 14.7 %; NEUT % 57.3 %; PLATELET COUNT 102 K/uL (130-400); RED BLOOD COUNT 4.32 M/uL (4.7-6.1); WHITE BLOOD COUNT 3.81 K/uL (4.8-10.8)
[2017-04-03 06:42] LABS: BUN/CREATININE RATIO 8.4 (10-20); CALCIUM 8.5 mg/dl (8.5-10.1); CREATININE 0.85 mg/dl (0.60-1.40); MAGNESIUM 2.1 mg/dl (1.8-2.4); POTASSIUM 3.9 mmol/L (3.5-5.1)
[2017-04-03 07:33] VITALS: BP 148/82; PULSE 71; TEMP 36.3; O2SAT 98
[2017-04-03] MEDS: MULTI-VITAMIN INFUSION INJ 10 ML, THIAMINE HCL INJ 100 MG, FoLIC ACID INJ 1 MG in SODIU... IV SCH (07:37)
[2017-04-03] MEDS ORDERED: AMLODIPINE BESYLATE 5 MG TAB PO SCH (09:00)
[2017-04-03] MEDS: ENOXAPARIN 40 MG/0.4 ML SYR SC SCH (09:35)
[2017-04-03] MEDS: NICOTINE 21 MG/24 HR TDSY TD SCH (09:39)
[2017-04-03] MEDS: SERTRALINE HCL 50 MG TAB PO SCH (09:40)
[2017-04-03 11:12] VITALS: BP 143/89; PULSE 87; TEMP 36.5; O2SAT 97
--- NOTE | 2017-04-03 13:35 | Progress Note ---
Medicine Progress Note Date & Time of Visit: Apr 03, 2017 at 13:22. Subjective seen sitting up in chair, comfortable pleasant, calm states he feels fine overall denies tremors, hallucinations, anxiety, palpitations or any signs of withdrawal denies headache, dyspnea, chest pain,abdominal pain ambulating with no problems states he is ready and would like to be discharged today denies other symptoms Objective Last 8 Hrs Date Time Temp Pulse Resp B/P (MAP) Pulse Ox O2 Delivery O2 Flow Rate FiO2 04/03/17 12:00 Room Air 04/03/17 11:12 36.5 87 18 143/89 (107) 97 Room Air 04/03/17 09:56 Room Air 04/03/17 08:00 Room Air 04/03/17 07:33 36.3 71 18 148/82 (104) 98 Room Air Physical Exam: General- oriented x 3, not in distress, speaks in sentences with no effort, no accessory muscle use Eyes- anicteric Neck- no JVD Lungs- clear to auscultation bilaterally Heart- regular rhythm; no murmur, normal rate Abdomen- normal bowel sounds, non distended, soft, nontender Extremities- no pretibial edema, no calf tenderness, NO hand tremors Neuro- alert, oriented x 3 no gross focal deficits, Skin- warm & dry Psych- denies depression symptoms, no anxiety, denies suicidality Laboratory Results: Last 24 Hours Test 04/03/17 05:58 White Blood Count 3.81 K/uL Red Blood Count 4.32 M/uL Hemoglobin 14.4 g/dL Hematocrit 40.7 % Mean Corpuscular Volume 94.2 fL Mean Corpuscular Hemoglobin 33.3 pg Mean Corpuscular Hemoglobin Concent 35.4 g/dl Platelet Count 102 K/uL Mean Platelet Volume 9.8 fL Neutrophils (%) (Auto) 57.3 % Lymphocytes (%) (Auto) 24.1 % Monocytes (%) (Auto) 14.7 % Eosinophils (%) (Auto) 3.1 % Basophils (%) (Auto) 0.8 % Neutrophils # (Auto) 2.18 K/uL Lymphocytes # (Auto) 0.92 K/uL Monocytes # (Auto) 0.56 K/uL Eosinophils # (Auto) 0.12 K/uL Basophils # (Auto) 0.03 K/uL RDW Standard Deviation 42.9 fL RDW Coefficient of Variation 12.6 % Immature Granulocyte % (Auto) 0.0 % Immature Granulocyte # (Auto) 0.00 K/uL Sodium Level 137 mmol/L Potassium Level 3.9 mmol/L Chloride Level 104 mmol/L Carbon Dioxide Level 27 mmol/L Anion Gap 5.0 mmol/L Blood Urea Nitrogen 7 mg/dl Creatinine 0.85 mg/dl Est Creatinine Clear Calc Drug Dose 104.6 ml/min Estimated GFR () 119.4 Estimated GFR (Non- 103.0 BUN/Creatinine Ratio 8.4 Random Glucose 103 mg/dl Calcium Level 8.5 mg/dl Magnesium Level 2.1 mg/dl Assessment & Plan 46 year old male with history of Alcoholism, Depression, Smoking presenting with alcohol intoxication. ALCOHOL INTOXICATION ALCOHOLISM - mild tremors and anxiety resolved - on Alcohol withdrawal protocol including Gabapentin taper, Ativan PRN based on scoring system Ativan IV PRN for anxiety on Banana Bag then NSS -- no overt signs of withdrawal at this time since yesterday patient prefers to undergo outpatient Alcohol Rehab, Counselling' - will discharge on Gabapentin taper , per Protocol advised to continue abstaining from alcohol advised to return to ER immediately if with signs of withdrawal he verbalized understanding and is agreeable with plan of care DEPRESSION - Psych consulted for anxiety Sertraline increased to 100mg daily monitor EKG for prolonged QT(last EKG qt is 482) HYPERTENSION - BP elevated on admission up to systolic 160s added Amlodipine 5mg po daily - monitor as outpatient HISTORY OF SMOKING - declines nicotine patch on discharge DVT proph Lovenox given Full Code Dispo patient prefers to undergo outpatient Alcohol Rehab, Counselling ff up with PCP in 3-5 days Current Inpatient Medications: Current Inpatient Medications Medications (Trade) Dose Ordered Sig/Venkat Route Start Time Stop Time Status Last Admin Dose Admin Enoxaparin Sodium (Lovenox Inj) 40 mg Q24H SC 04/01/17 09:00 05/01/17 08:59 04/03/17 09:35 40 MG Acetaminophen (Tylenol Tab) 650 mg Q4H PRN PO 04/01/17 01:00 05/01/17 00:59 Ondansetron HCl (Zofran Inj) 4 mg Q6H PRN IV 04/01/17 01:00 05/01/17 00:59 Sertraline HCl (Zoloft Tab) 100 mg DAILY PO 04/01/17 09:00 05/01/17 08:59 04/03/17 09:40 100 MG Lorazepam (Ativan Tab) PRN Dosing -Active Protocol UD PRN PO 04/01/17 01:30 05/01/17 01:29 Lorazepam (Ativan Inj) 1 mg ONE PRN IV 04/01/17 01:30 Multivitamins 10 ml/Thiamine HCl 100 mg/Folic Acid 1 mg/Sodium Chloride 1,011.2 ml @ 100 mls/ hr DAILY IV 04/01/17 09:00 04/06/17 08:59 04/03/17 07:37 100 MLS/HR Nicotine (Nicoderm Cq 21MG Patch) 1 patch QAM TD 04/01/17 09:00 05/01/17 08:59 04/03/17 09:39 1 PATCH Miscellaneous (Remove Nicoderm Patch) 1 ea HS N/A 04/01/17 21:00 05/01/17 20:59 04/02/17 21:10 1 EA Gabapentin (Neurontin Tab) 600 mg Q12H PO 04/03/17 02:00 04/03/17 14:01 04/03/17 02:02 600 MG Gabapentin (Neurontin Tab) 600 mg Q24H PO 04/04/17 14:00 04/04/17 14:01 Potassium Chloride/Sodium Chloride 1,000 ml @ 100 mls/hr Q10H IV 04/01/17 10:15 05/01/17 10:14 04/03/17 02:02 100 MLS/HR Clonidine HCl (Catapres Tab) 0.1 mg Q6H PRN PO 04/01/17 10:15 05/01/17 10:14 04/02/17 21:18 0.1 MG Lorazepam 1 mg/ Syringe 1 ml @ 0.5 mls/min Q3H PRN IV 04/01/17 16:15 05/01/17 09:59 04/03/17 05:50 0.5 MLS/MIN Amlodipine Besylate (Norvasc Tab) 5 mg QAM PO 04/03/17 09:00 05/03/17 08:59 04/03/17 09:38 5 MG
[2017-04-03] MEDS ORDERED: MULT-589 PO (13:39)
[2017-04-03] MEDS ORDERED: NRN600 PO (13:39)
[2017-04-03] MEDS ORDERED: ZLF50 PO (13:39)
[2017-04-03] MEDS ORDERED: NRV5 PO (13:39)
--- NOTE | 2017-04-03 13:51 | Discharge Instructions ---
Discharge Instructions Date of Service Apr 03, 2017. Admission Reason for Admission: Alcohol Abuse Discharge Discharge Diagnosis / Problem: ALCOHOL INTOXICATION Discharge Goals Goal(s): Diagnostic testing, Therapeutic intervention Activity Recommendations Activity Limitations: as noted below (NO HEAVY EXERTION UNTIL RE-EVALUATED BY PRIMARY CARE PHYSICIAN) Lifting Limitations: until after follow-up appointment Exercise/Sports Limitations: until after follow-up appointment Driving or Machine Use: NO DRIVING UNLESS CLEARED BY PRIMARY CARE PHYSICIAN . Instructions / Follow-Up Instructions / Follow-Up PLEASE REVIEW YOUR NEW MEDICATION LIST AND FOLLOW INSTRUCTIONS CAREFULLY. RETURN TO ER IMMEDIATELY IF WITH INCREASING ANXIETY, TREMORS, SWEATS, HALLUCINATIONS, WORSENING OF DEPRESSION SYMPTOMS. ENSURE ADEQUATE DAILY FLUID INTAKE. FOLLOW UP WITH DR. JACKLYN TAVERAS (ASSOCIATE OF DR. MARTINEZ) ON Friday04/06/17 AT 12:45PM. Current Hospital Diet Patient's current hospital diet: AHA Diet (Heart Healthy) Discharge Diet Recommended Diet: AHA Diet (Heart Healthy) Pending Studies Studies pending at discharge: no Medical Emergencies . Who to Call and When: Medical Emergencies: If at any time you feel your situation is an emergency, please call 911 immediately. . Non-Emergent Contact Non-Emergency issues call your: Primary Care Provider Call Non-Emergent contact if: you have a fever, you have any medication questions . . "Provider Documentation" section prepared by [place] Dior. . VTE Core Measure Inpt VTE Proph given/why not?: Enoxaparin (Lovenox) [place] Drug Monitoring Program Search Results: patient reviewed within database, no issues identified
--- NOTE | 2017-04-03 13:57 | Discharge Summary ---
Discharge Summary Date of Service Apr 03, 2017. Discharge Summary Admission Date: Apr 01, 2017 at 01:22 Discharge Date: Apr 03, 2017 Discharge Disposition: Home Principal Diagnosis: ALCOHOL INTOXICATION; ALCOHOLISM Secondary Diagnoses/Problems: Please refer to hospital course below. Pending Studies/Follow-Up: Please refer to hospital course below. Medication Reconciliation New Medications: Multivitamins (Daily Xiomara) 1 Tab Tab 1 TAB PO DAILY for 30 Days, #30 TAB 0 Refills Amlodipine Besylate (Amlodipine Besylate) 5 Mg Tab 5 MG PO QAM for 30 Days, #30 TAB 0 Refills Gabapentin (Gabapentin) 600 Mg Tab 600 MG PO UD for 2 Days, #2 TAB for 04/03/17: take 1 tab po in the evening; for 04/04/17, take 1 tab po in AM Sertraline HCl (Sertraline HCl) 50 Mg Tab 100 MG PO DAILY for 10 Days, #20 TAB 0 Refills Discontinued Medications: Sertraline (Zoloft) 50 Mg Tab 50 MG PO DAILY, TAB Admission Information HPI (per Admitting provider): Patient is a 46 yr male with PMH of alcohol abuse disorder and depression presents with history of ongoing alcohol abuse, Insomnia and requests to get alcohol detox. Patient was previously at [facility] 4 yrs ago for inpatient rehab but relapsed within 6 months duration. She states he drinks at least a case of beer on daily basis and states he had problems with sleep and undergoes through DTs everyday. Denies any history of seizures. He attends AA meetings. Denies any history of headache, head trauma, falls, LOC, hallucinations, suicidal ideation. Also denies any history of chest pain, SOB, palpitations, dizziness, pedal edema, fever, chills, change in vision, nausea, vomiting, abdominal pain, diarrhea, dysuria. Physical Exam (per Admitting): General Appearance: WD/WN, no apparent distress Head: normocephalic, atraumatic Eyes: normal inspection, PERRL, EOMI, sclerae normal ENT: normal ENT inspection, hearing grossly normal Neck: supple, no JVD, trachea midline Respiratory/Chest: chest non-tender, lungs clear, normal breath sounds, no respiratory distress, no accessory muscle use Cardiovascular: regular rate, rhythm, no edema, no murmur Abdomen/GI: normal bowel sounds, non tender, soft Back: normal inspection Extremities/Musculoskelatal: normal inspection, no pedal edema Neurologic/Psych: pharmacist manager II-XII nml as tested, no motor/sensory deficits, alert , normal mood/affect, oriented x 3 Skin: normal color, warm/dry Hospital Course 46 year old male with history of Alcoholism, Depression, Smoking presenting with alcohol intoxication. ALCOHOL INTOXICATION ALCOHOLISM - presented to the ER with alcohol intoxication and possible withdrawals patient intending to stop drinking and enroll in Alcohol rehab program again - placed on Alcohol withdrawal protocol including Gabapentin taper, Ativan PRN based on scoring system Ativan IV PRN for anxiety Banana Bag then NSS -- mild tremors and anxiety resolved no overt signs of withdrawal at this time since day before discharge -- patient prefers to undergo outpatient Alcohol Rehab, Counselling - will discharge on Gabapentin taper , per Protocol advised to continue abstaining from alcohol advised to return to ER immediately if with signs of withdrawal he verbalized understanding and is agreeable with plan of care DEPRESSION - Psych consulted for anxiety Sertraline increased to 100mg daily monitor response and monitor EKG for prolonged QT(last EKG qt is 482) HYPERTENSION - BP elevated on admission up to systolic 160s added Amlodipine 5mg po daily BP improving, asymptomatic - monitor as outpatient HISTORY OF SMOKING - declines nicotine patch on discharge Dispo patient prefers to undergo outpatient Alcohol Rehab, Counselling ff up with PCP in 3-5 days Total time spent on discharge = 30 minutes This includes examination of the patient, discharge planning, medication reconciliation, and communication with other providers. Discharge Instructions Discharge Instructions Date of Service Apr 03, 2017. Admission Reason for Admission: Alcohol Abuse Discharge Discharge Diagnosis / Problem: ALCOHOL INTOXICATION Discharge Goals Goal(s): Diagnostic testing, Therapeutic intervention Activity Recommendations Activity Limitations: as noted below (NO HEAVY EXERTION UNTIL RE-EVALUATED BY PRIMARY CARE PHYSICIAN) Lifting Limitations: until after follow-up appointment Exercise/Sports Limitations: until after follow-up appointment Driving or Machine Use: NO DRIVING UNLESS CLEARED BY PRIMARY CARE PHYSICIAN . Instructions / Follow-Up Instructions / Follow-Up PLEASE REVIEW YOUR NEW MEDICATION LIST AND FOLLOW INSTRUCTIONS CAREFULLY. RETURN TO ER IMMEDIATELY IF WITH INCREASING ANXIETY, TREMORS, SWEATS, HALLUCINATIONS, WORSENING OF DEPRESSION SYMPTOMS. ENSURE ADEQUATE DAILY FLUID INTAKE. FOLLOW UP WITH DR. JACKLYN TAVERAS (ASSOCIATE OF DR. MARTINEZ) ON Friday04/06/17 AT 12:45PM. Current Hospital Diet Patient's current hospital diet: AHA Diet (Heart Healthy) Discharge Diet Recommended Diet: AHA Diet (Heart Healthy) Pending Studies Studies pending at discharge: no Medical Emergencies . Who to Call and When: Medical Emergencies: If at any time you feel your situation is an emergency, please call 911 immediately. . Non-Emergent Contact Non-Emergency issues call your: Primary Care Provider Call Non-Emergent contact if: you have a fever, you have any medication questions . . "Provider Documentation" section prepared by [place] Dior. . VTE Core Measure Inpt VTE Proph given/why not?: Enoxaparin (Lovenox)[place] Drug Monitoring Program Search Results: patient reviewed within database, no issues identified
[2017-04-03 14:37] VITALS: BP 143/89; PULSE 87; TEMP 36.5; O2SAT 97
[2017-04-04] MEDS ORDERED: GABAPENTIN 600MG Q24H DOSE PO SCH (14:00)
== END 2017-04-03 15:05 | disposition home or self-care (01) | DRG 897 ==
LOC: C.EDB 22:26 → C.MED 04-01 01:22 → ENRESERV 04-01 01:44
PROVIDERS: ADMIT Internal Medicine; ATTEND Internal Medicine
DX: F10.229 Alcohol dependence with intoxication, unspecified (principal); F10.239 Alcohol dependence with withdrawal, unspecified; T51.0X2A Toxic effect of ethanol, intentional self-harm, initial encounter; Y90.8 Blood alcohol level of 240 mg/100 ml or more; I10 Essential (primary) hypertension; G47.00 Insomnia, unspecified; F41.9 Anxiety disorder, unspecified; F32.9 Major depressive disorder, single episode, unspecified; F17.200 Nicotine dependence, unspecified, uncomplicated; Z23 Encounter for immunization; Z79.899 Other long term (current) drug therapy

== ENCOUNTER 2022-09-02 10:15 | Inpatient (IN) ==
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
[2022-09-02 11:15] LABS: Appearance Urine Clear (Clear); Bilirubin Urine Negative (Negative); Blood Urine Negative (Negative); Color Urine Yellow; Glucose Urine UA Negative (Negative); Ketones Urine Negative (Negative); Leukocyte Esterase Urine Negative (Negative); Nitrite Urine Negative (Negative); Protein Urine Negative (Negative); Specific Gravity Urine 1.004 (1.000-1.030); Urobilinogen Urine Negative (Negative); pH Urine 5.5 (4.5-7.5)
[2022-09-02 11:36] LABS: Amphetamines+Metham, Urine Neg (Neg); Barbiturates, Urine Neg (Neg); Benzodiazepine, Urine Neg (Neg); Cocaine, Urine Neg (Neg); MDMA (Ecstacy), Urine Neg (Neg); Methadone, Urine Neg (Neg); Opiate, Urine Neg (Neg); Phencyclidine, Urine Neg (Neg)
[2022-09-02 11:51] LABS: Basophils # (auto) 0.03 K/uL (0-0.2); Basophils % (auto) 0.9 %; Eosinophils # (auto) 0.01 K/uL (0-0.50); Eosinophils % (auto) 0.3 %; Hematocrit (blood only) 46.6 % (42.0-52.0); Hemoglobin 16.3 g/dl (14.0-18.0); Immature Granulocytes # (auto) 0.01 K/uL (0.01-0.20); Immature Granulocytes % (auto) 0.3 %; Lymphocytes # (auto) 1.01 K/uL (1.2-3.4); Lymphocytes % (auto) 28.7 %; Mean Corpuscular Hemoglobin 31.4 pg (25.0-34.0); Mean Corpuscular Volume 89.8 fL (80.0-100.0); Mean Platelet Volume 10.5 fL (9.4-12.4); Monocytes # (auto) 0.35 K/uL (0.11-0.59); Monocytes % (auto) 9.9 %; Neutrophils # (auto) 2.11 K/uL (1.40-6.50); Neutrophils % (auto) 59.9 %; Platelet Count 129 K/uL (130-400); RDW Coefficient of Variation 12.1 % (11.5-14.5); RDW Standard Deviation 39.8 fL (36.4-46.3); Red Blood Count 5.19 M/uL (4.70-6.10); White Blood Count 3.52 K/ul (4.8-10.8)
[2022-09-02 12:11] LABS: Albumin Globulin Ratio 1.5 (0.9-2); Albumin Level 4.3 gm/dl (3.4-5.0); BUN Creatinine Ratio 7.4 (10-20); Creatinine Clr Calc Pharmacy 97.3 ml/min; Est GFR (African American) 106.1 ml/min; Est GFR (Non-African American) 91.6 ml/min; Globulin 2.8 gm/dl (2.5-4.0); Potassium 3.8 mmol/L (3.5-5.1); Total Protein 7.1 gm/dl (6.0-8.3)
[2022-09-02 12:13] LABS: Acetaminophen < 3 ug/ml (10-30); Salicylate < 3.0 mg/dl (3.0-30)
[2022-09-02] MEDS ORDERED: LORazepam 0.5 MG TAB PO STA (12:23)
[2022-09-02] MEDS ORDERED: chlordiazePOXIDE HCl 25 MG CAP PO ONE ×2 (12:23→12:29)
--- NOTE | 2022-09-02 17:32 | Emergency Department Note ---
ED Visit Note I assumed care at the change of shift. The patient had presented with suicidal ideation. He was voluntary and a 201. He had thought about harming himself with antifreeze or carbon monoxide. He was given Librium to hopefully prevent alcohol withdrawal as he drinks alcohol on a daily basis. Repeat ECG per my review: There is a normal sinus rhythm with a rate of 89. There is LVH present. There is some nonspecific ST change. No concerning ST elevation, no PVCs. The QTc is 459. The patient became hypertensive and seemed to be having some alcohol withdrawal. Psychiatry did evaluate the patient but refused to take the patient on their service as they felt medical management for his alcohol withdrawal was more i mportant than his psychiatry care. Psychiatry will see the patient in consult. Patient had an IV placed. He was given IV saline with multivitamins, thiamine and folate. He was given IV Ativan. He received IV labetalol for his higher blood pressure. Patient's cardiac troponin returned slightly elevated. Certainly this elevation could indicate cardiac ischemia although, the patient does not have any chest pain, his ECG does not show evidence for acute ischemia. The troponin elevation may be secondary to mismatch from his hypertension. I did speak with case management, the on-call hospitalist has been consulted. The patient does seem to be doing better since being medicated here in the ED, his blood pressure is more controlled, his pulse is in the 60s. He seems comfortable. Diagnosis: Alcohol withdrawal, hypertension, troponin elevation, suicidal ideation .
[2022-09-02] MEDS ORDERED: ONDANSETRON 4 MG OD TAB PO STA (18:29)
[2022-09-02] MEDS ORDERED: LABETALOL HCL IV 5 MG/ML 20ML IV STA (21:07)
[2022-09-02] MEDS ORDERED: LORazepam 2 MG/1 ML VIAL IV STA (21:07)
[2022-09-02] MEDS ORDERED: MULTI-VITAMIN INFUSION 10 ML, THIAMINE HCL 100 MG, FOLIC ACID 1 MG in SODIUM CHLORIDE 0... IV ONE (21:07)
[2022-09-02 22:09] LABS: Troponin I High Sensitivity 57.7 pg/ml (0-20)
[2022-09-03] MEDS ORDERED: Ativan IV Alcohol Withdrawal--Active Protocol IV PRN (01:09)
[2022-09-03] MEDS ORDERED: NITROGLYCERIN SL 0.4 MG/TAB TAB SL PRN (01:09)
[2022-09-03] MEDS ORDERED: cloNIDine HCL 0.1 MG TAB PO PRN (01:09)
[2022-09-03] MEDS ORDERED: GABAPENTIN 1200MG ALCOHOL WITHDRAWAL LOAD PO STA (01:09)
[2022-09-03] MEDS ORDERED: LORazepam 2 MG/1 ML VIAL IV PRN ×3 (01:09)
[2022-09-03] MEDS ORDERED: GABAPENTIN 600 MG TAB PO ONE (01:45)
--- NOTE | 2022-09-03 01:49 | History and Physical Report ---
DATE OF ADMISSION: 09/02/2022. CHIEF COMPLAINT: Suicidal ideation, alcoholism. HISTORY OF PRESENT ILLNESS: This is a 52-year-old male with past medical history significant for nonischemic cardiomyopathy with mild LV dysfunction dysfunction, EF of 40%-45% in 2013, but in 08/2021, EF of 50%-54%, uncontrolled hypertension, history of prolonged QT interval of 492, obesity. The patient says currently not taking any prescription medications. He is drinking 6 beers daily.. Today, he had thoughts of hurting himself, thought of drinking antifreeze and also carbon monoxide, but he came to hospital. Plan was to send him to inpatient psychiatric unit, but the patient was having alcohol withdrawal and elevated BP. His alcohol level was 247. Troponin level was 57. . The patient received a dose of Ativan. Currently, somewhat drowsy, but answering questions appropriately. Denies any chest pain, no shortness of breath or chills, some nausea. Currently, no cough, no fevers, no difficulty swallowing. No headache, no blurred visions, no sore throat. No abdominal pain. Normal bowel and bladder movements. ALLERGIES: No known drug allergies. PAST MEDICAL HISTORY: As mentioned above. PAST SURGICAL HISTORY: Cardiac catheterization, no coronary artery disease in 2013, tonsillectomy, removal of object from cornea, vasectomy. MEDICATIONS: Currently, the patient is not taking any prescription medications. Family history: Father had diabetes, CO, CHF. Mother had CHF,SLE. SOCIAL HISTORY: Says he chews tobacco, Drinks 6 beers daily. Denies any drug use. REVIEW OF SYSTEMS: As per HPI. Rest of the review of systems is negative. PHYSICAL EXAMINATION: GENERAL: The patient is obese, not in acute distress. VITAL SIGNS: Temperature 36.8, pulse 94, respiratory rate 16, blood pressure 125/110, oxygen 94% on room air. HEENT: Pupils equal, round and reactive to light. Extraocular muscles intact. No facial droop. Oral mucosa moist. NECK: No JVD, no neck masses. CARDIOVASCULAR: S1 and S2 heard. Regular rate and rhythm. No murmur, no gallop. RESPIRATORY SYSTEM: Normal AP diameter. No accessory muscle use. No wheezing, no crackles. ABDOMEN: Soft, bowel sounds present, nontender, no distention. CENTRAL NERVOUS SYSTEM: Alert and oriented. Speech is clear. No facial droop. Obeys simple commands. Moves extremities. EXTREMITIES: No edema, no erythema. LABORATORY DATA: WBC 3.5, hemoglobin 16.3, hematocrit 46.6, platelets 129. Sodium 136, potassium 3.8, chloride 98, bicarbonate 23, BUN 7, creatinine 0.9, serum glucose 93, calcium 9, magnesium 2, total bilirubin 1, AST 112, ALT 137, alkaline phosphatase 64. Troponin I high sensitivity 57.7. TSH 1.5. Urinalysis negative. Urine drug screen unremarkable except for alcohol 247. SARS-CoV-2 rapid test negative. EKG, normal sinus rhythm at a rate of 89, nonspecific ST abnormalities. ASSESSMENT AND PLAN: This is a 52-year-old male, presents with suicidal ideation, also found to have uncontrolled blood pressure and alcoholism. 1. Suicidal ideation Suicidal precautions. psych consult , inpatient psych admission when the patient is stable. 2. Alcoholism. Received banana bag in er.alcohol withdrawal protocol with gabapentin and Ativan p.r.n., IV thiamine and IV folic acid. Monitor in the med telemetry. 3. Hypertension. The patient was on metoprolol succinate and lisinopril/hydrochlorothiazide in the past. The patient is currently not taking any medications. The patient having alcohol withdrawal . Clonidine prn p.r.n. Closely monitor blood pressure and may need to place her on scheduled dose of blood pressure medications. We will follow echocardiogram. 4. Mild elevation of troponin serial ce and echocardiogram. 5. History of nonischemic cardiomyopathy, EF of 40%-45% in 2013, but it is around 50% in 202. We will follow repeat echo. 6. Thrombocytopenia and leukopenia mostly from alcoholism. We will follow repeat labs. 7. Mild transaminitis, mostly from alcoholism. Follow repeat labs. 8. Deep venous thrombosis prophylaxis: Placed on Lovenox. We will monitor the platelets. DISPOSITION: Closely monitor in the med tele. PT/OT. Social service to help with discharge planning. Job ID: [id number] KINDRA
[2022-09-03] MEDS: ENOXAPARIN INJ 40 MG/0.4 ML SYR SQ SCH (08:32)
[2022-09-03] MEDS: GABAPENTIN 600 MG TAB PO SCH ×3 (08:32→22:00)
[2022-09-03] MEDS: FOLIC ACID 1 MG in SYRINGE 9.8 ML IV SCH (08:33)
[2022-09-03] MEDS: THIAMINE HCL 100 MG in SYRINGE 9 ML IV SCH (08:33)
[2022-09-03] MEDS ORDERED: LACTATED RINGER'S 1,000 ML IV SCH (09:45)
[2022-09-03] MEDS ORDERED: METOPROLOL TARTRATE 1 MG/ML VIAL IV STA (09:48)
--- NOTE | 2022-09-03 10:50 | Electrocardiogram Report ---
Test Reason : Blood Pressure : / mmHG Vent. Rate : 095 BPM Atrial Rate : 095 BPM P-R Int : 176 ms QRS Dur : 100 ms QT Int : 400 ms P-R-T Axes : 058 006 018 degrees QTc Int : 502 ms Normal sinus rhythm Possible Left atrial enlargement Left ventricular hypertrophy Nonspecific ST abnormality Prolonged QT Abnormal ECG When compared with ECG of 03-APR-2017 13:46, T wave amplitude has decreased in Anterolateral leads Confirmed by Rob Maciel ([id number]) on 09/03/2022 10:50:09 AM Referred By: REFERRED SELF Confirmed By:Emiliano Maciel
--- NOTE | 2022-09-03 10:54 | Electrocardiogram Report ---
Test Reason : Blood Pressure : / mmHG Vent. Rate : 089 BPM Atrial Rate : 089 BPM P-R Int : 182 ms QRS Dur : 096 ms QT Int : 378 ms P-R-T Axes : 054 -02 004 degrees QTc Int : 459 ms Normal sinus rhythm Moderate voltage criteria for LVH, may be normal variant Nonspecific ST abnormality Abnormal ECG When compared with ECG of 02-SEP-2022 16:01, (unconfirmed) No significant change was found Confirmed by Rob Maciel ([id number]) on 09/03/2022 10:54:17 AM Referred By: REFERRED SELF Confirmed By:Emiliano Maciel
--- NOTE | 2022-09-03 11:17 | Cardiology Consultation ---
Date of Consultation September 03, 2022 Assessment & Plan (1) Paroxysmal atrial fibrillation: (2) Hypertension: (3) Elevated troponin: (4) Depression with suicidal ideation: (5) Alcohol abuse: Plan Patient admitted for mental health evaluation/suicide ideation. Hypertensive on admission in setting of non compliance with medications and alcohol withdrawal Incidentally found to have minimally elevated troponin. This morning patient also had episode of paroxysmal atrial fibrillation lasting approx 2 hours. Converted spontaneously to NSR. Resume metoprolol 50 mg daily (prior home dose). Replace and monitor electrolytes Monitor BP Echo without changes or new wall motion abnormalities. Minimally elevated troponin not indicative of ACS. He has a history of prolonged QT interval, so will need to monitor closely with psychiatric treatments. Case discussed with Dr. Sales. Supervising Physician Co-Signing Physician Notes Patient was seen and personally examined full H&P obtained. Presents with multiple symptoms generalized weakness and fatigue in association with increasing depression, alcohol use/withdrawal. Notes having stopped usual cardiac and noncardiac medications. While in the emergency room blood pressure and heart rate elevated with transient run of atrial fibrillation with spontaneous conversion to sinus rhythm Patient now comfortable. No chest pains or shortness of breath main complaints of been fatigue and increasing lethargy No anginal pain. 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 No specific change in exercise tolerance Physical examination heart rates 90 blood pressure is 155/98 HEENT exam is normal cephalic and atraumatic there is no jugular venous distention Neck is thick Lungs are clear to auscultation Cardiovascular regular with normal S1-S2 there is no audible murmur rub there is no peripheral edema there is no jugular venous distention Abdomen: Soft nontender Data EKG: Normal sinus rhythm at 89 bpm with voltage criteria for left ventricular hypertrophy and no change from prior studies Echocardiogram: Normal left ventricular size. Moderate left hypertrophy with mildly depressed LV systolic function EF 45 to 50%, no significant valve disease Impression: 1. Transient atrial fibrillation likely in response to hypertension, stress and alcohol, beta-hawa withdrawal. Currently in sinus rhythm [id number] 2 score of 1 without indications for anticoagulation 2. Hypertension 3. Nonischemic cardiomyopathy with mild depression overall systolic function unchanged from prior studies Recommendations: Metoprolol succinate to be resumed today would restart lisinopril as blood pressure allows. Discussed in detail with patient Other recommendations as above History of Present Illness Reason for Consultation: Elevated troponin; Hypertension; ? Afib Requesting Physician: Dr. May Attending Physician: Dr. Sales History of Present Illness Patient is a 52 year old male known to [facility] cardiology, Dr. Whitten. Last clinic evaluation in 08/2021. All history is obtained from inpatient/outpatient records. Patient was not available at time of consult History includes: 1. NICM with mild LV systolic dysfunction, LVEF 40-44%, 2013, now 50-54% 2. hypertension 3. Prolonged QT interval, 492 ms per EKG 07/2021 4. ETOH abuse, 8 beers per day over the past 10+ years 5. Obesity with suspected DEE 6 Cardiac cath in 2013 with normal coronary arteries Apparently patient stopped cardiac medications (metoprolol succinate 50 mg and lisinopril/hctz 10-12.5) several months ago per admission notes. Patient admitted for suicidal ideations. Being treated for alcohol withdrawal. on admission BP was elevated. HS troponin minimally elevated. EKG without acute changes. This morning around 8:30 AM, patient developed afib with elevated ventricular rates. Episode treated with IV metoprolol. Patient converted to NSR around 11:00 AM. Cardiology consult placed. At time of consult, patient in mental health wing and currently showering per nurse. Off monitor. Allergies Allergy/AdvReac Type Severity Reaction Status Date / Time No Known Allergies Allergy Unverified 09/30/20 20:57 Home Medications Medication Instructions Recorded Confirmed Type duloxetine 30 mg capsule,delayed 300 mg PO DAILY 09/30/20 09/30/20 History release folic acid 1 mg tablet 1 mg PO DAILY 09/30/20 09/30/20 History meloxicam 15 mg tablet 15 mg PO DAILY 09/30/20 09/30/20 History sildenafil 100 mg tablet 100 mg PO DAILY PRN Sexual Activity 09/30/20 09/30/20 History thiamine HCl (vitamin B1) 100 mg 100 mg PO DAILY 09/30/20 09/30/20 History tablet Patient History Social History Smoking Status: Current every day smoker Tobacco Type: Smokeless Tobacco (Dip or Chew) Second Hand Exposure: No; Do You Dip or Chew Tobacco: Yes; Hx Alcohol Use: Yes Alcohol type: beer Hx Substance Use: No Preferred Language: Greenlandic Communication Ability: Effective Dining Room Maid Required: No Beliefs That Will Affect Care: None Current Living Situation: Alone Other Information That Helps Us Care for You: No Feels Safe at Home: No Is there a partner from a previous relationship who is making you feel unsafe now?: No Any Concerns about Your Family Situation: No Would You Like to Speak to Someone About Your Situation: No Safety Concerns: Afraid for Self Gender Identity: Male Assistive Devices: None Review of Systems Review of Systems: All systems reviewed & are unremarkable except as noted in HPI & below and Other (patient not available at time of consult) Physical Exam Physical Exam: NOT performed Results & Data Vital Signs (Past 12 Hours) Vital Signs Pulse Pulse Resp BP BP Pulse Ox O2 Del Method 09/03/22 10:06 96 H 16 142/106 H 97 Room Air 09/03/22 09:48 152 H 16 173/99 H 96 Room Air 09/03/22 09:30 138 H 17 96 09/03/22 09:30 132 H 173/99 H 09/03/22 09:00 103 H 16 97 09/03/22 09:00 157/113 H 09/03/22 08:30 96 H 21 97 09/03/22 08:30 125 H 153/114 H 09/03/22 08:00 93 H 16 95 09/03/22 08:00 154/110 H 09/03/22 07:30 93 H 15 93 09/03/22 07:30 145/98 H 09/03/22 07:00 92 H 14 92 09/03/22 07:00 158/109 H 09/03/22 06:30 107 H 14 87 L 09/03/22 06:30 164/105 H 09/03/22 06:00 92 H 23 97 09/03/22 06:00 166/95 H 09/03/22 05:30 86 13 98 09/03/22 05:30 148/96 H 09/03/22 05:11 83 12 99 09/03/22 05:11 159/104 H 09/03/22 05:10 111 H 31 H 91 09/03/22 05:10 155/112 H 09/03/22 05:01 77 10 L 09/03/22 05:01 157/122 H 09/03/22 05:00 86 13 09/03/22 04:30 87 13 96 09/03/22 04:30 149/102 H 03/21/23 04:00 94 H 15 97 09/03/22 04:00 134/86 09/03/22 03:30 98 H 22 96 09/03/22 03:30 149/94 H 09/03/22 03:00 95 H 17 95 09/03/22 03:00 161/106 H 09/03/22 02:30 87 16 95 09/03/22 02:30 143/107 H 09/03/22 02:01 181/118 H 09/03/22 02:01 74 19 97 09/03/22 02:00 97 H 13 95 09/03/22 01:30 69 15 09/03/22 01:30 146/93 H 09/03/22 01:00 71 15 96 09/03/22 01:00 155/87 H 09/03/22 00:42 75 15 95 09/03/22 08:51 98 H 09/03/22 08:34 110 H 09/03/22 06:37 89 16 164/105 H 96 Nasal Cannula 09/03/22 05:12 85 16 159/104 H 97 Nasal Cannula 09/03/22 03:02 95 H 95 Nasal Cannula 09/03/22 02:00 91 H 17 181/118 H 97 09/03/22 01:00 69 15 155/87 H 94 Room Air 09/03/22 00:00 68 18 148/92 H 97 09/02/22 23:19 63 12 160/94 H 98 O2 Flow Rate 09/03/22 10:06 09/03/22 09:48 09/03/22 09:30 09/03/22 09:30 09/03/22 09:00 09/03/22 09:00 09/03/22 08:30 09/03/22 08:30 09/03/22 08:00 09/03/22 08:00 09/03/22 07:30 09/03/22 07:30 09/03/22 07:00 09/03/22 07:00 09/03/22 06:30 09/03/22 06:30 09/03/22 06:00 09/03/22 06:00 09/03/22 05:30 09/03/22 05:30 09/03/22 05:11 09/03/22 05:11 09/03/22 05:10 09/03/22 05:10 09/03/22 05:01 09/03/22 05:01 09/03/22 05:00 09/03/22 04:30 09/03/22 04:30 09/03/22 04:00 09/03/22 04:00 09/03/22 03:30 09/03/22 03:30 09/03/22 03:00 09/03/22 03:00 09/03/22 02:30 09/03/22 02:30 09/03/22 02:01 09/03/22 02:01 09/03/22 02:00 09/03/22 01:30 09/03/22 01:30 09/03/22 01:00 09/03/22 01:00 09/03/22 00:42 09/03/22 08:51 09/03/22 08:34 09/03/22 06:37 2 09/03/22 05:12 2 09/03/22 03:02 2 09/03/22 02:00 09/03/22 01:00 09/03/22 00:00 09/02/22 23:19 Laboratory Results Cardiac Enzymes 09/02/22 09/02/22 09/03/22 Range/Units 11:06 20:42 05:43 AST 112 H (13-39) U/L Troponin I High Sens 57.7 H* Cancelled 46.0 H D (0-20) pg/ml CBC 09/02/22 Range/Units 11:06 WBC 3.52 L (4.8-10.8) K/ul RBC 5.19 (4.70-6.10) M/uL Hgb 16.3 (14.0-18.0) g/dl Hct 46.6 (42.0-52.0) % Plt Count 129 L (130-400) K/uL Neut # (Auto) 2.11 (1.40-6.50) K/uL Lymph # (Auto) 1.01 L (1.2-3.4) K/uL Oliver # (Auto) 0.35 (0.11-0.59) K/uL Eos # (Auto) 0.01 (0-0.50) K/uL Baso # (Auto) 0.03 (0-0.2) K/uL Comprehensive Metabolic Panel 09/02/22 Range/Units 11:06 Sodium 136 (136-145) mmol/L Potassium 3.8 (3.5-5.1) mmol/L Chloride 98 (98-107) mmol/L Carbon Dioxide 23 (21-32) mmol/L BUN 7 (6-23) mg/dl Creatinine 0.94 (0.6-1.4) mg/dl Glucose 93 (70-99(Fasting)) mg/dl Calcium 9.0 (8.5-10.1) mg/dl AST 112 H (13-39) U/L ALT 137 H (7-52) U/L Alkaline Phosphatase 64 (34-104) U/L Total Protein 7.1 (6.0-8.3) gm/dl Albumin 4.3 (3.4-5.0) gm/dl Intake and Output 09/02/22 09/03/22 09/03/22 22:59 06:59 14:59 Intake Total 1011.2 / 1011.2 Balance 1011.2 / 1011.2 Intake: IV 1011.2 / 1011.2 Multi-Vitamin Infusion 10 ml 1011.2 / 1011.2 Thiamine HCl 100 mg Folic Acid 1 mg In Sodium Chloride 0.9% 1000ML 1,000 ml @ 1011.2 mls/hr IV .Q1H ONE Rx#:[id number] Diagnostic Findings EKG on arrival: NSR with voltage criteria for LVH, borderline prolonged QT interval Repeat EKG last night: NSR with LVH, improved QT interval EKG this morning: Atrial fibrillation with elevated ventricular rates Telemetry reviewed: Upon admission, patient was in NSR. This morning he had approx 2-3 hour episode of atrial fibrillation with RVR. He converted to NSR around 11:00 AM echo results reviewed from 09/03/22: LV is normal in size Moderate concentric LVH Mild global hypokinesis of the LV EF 45-50% Borderline aortic root dilatation No significant valvular disease No pericardial effusion Prior outside echocardiogram dated August 2021: Interpretation Summary The examination is adequate to evaluate the referral indication. The left ventricular cavity size is normal. The LV wall thickness is moderately increased (concentric). There is very subtle hypokinesis of the inferior and inferoseptal wall the base and mid level with all other wall segments hilda normally The qualitative LV ejection fraction is 50-54% (normal). The left ventricular diastolic function is mildly abnormal (grade I). There is no significant valvular disease Medications Administered Current Inpatient Medications Clonidine HCl (Clonidine Hcl 0.1 Mg Tab) 0.1 mg PO Q4H PRN PRN Reason: Hypertension Stop: 10/03/22 01:08 Enoxaparin Sodium (Enoxaparin Inj 40 Mg/0.4 Ml Syr) 40 mg SQ Q24H RAKEL Stop: 10/03/22 08:59 Last Admin: 09/03/22 08:32 Dose: 40 mg Gabapentin (Gabapentin 600 Mg Tab) 600 mg PO Q24H RAKEL Stop: 09/06/22 14:01 Gabapentin (Gabapentin 600 Mg Tab) 600 mg PO Q12H RAKEL Stop: 09/05/22 14:01 Gabapentin (Gabapentin 600 Mg Tab) 600 mg PO Q8H RAKEL Stop: 09/04/22 14:01 Gabapentin (Gabapentin 600 Mg Tab) 600 mg PO Q6H RAKEL Stop: 09/03/22 14:01 Last Admin: 09/03/22 08:32 Dose: 600 mg Folic Acid 1 mg/ Syringe 10 mls @ 5 mls/min IV QAM RAKEL Stop: 10/03/22 08:59 Last Admin: 09/03/22 08:33 Dose: 5 mls/min Thiamine HCl 100 mg/ Syringe 10 mls @ 2 mls/min IV QAM RAKEL Stop: 10/03/22 08:59 Last Admin: 09/03/22 08:33 Dose: 2 mls/min Lactated Ringer's (Lr) 1,000 mls @ 125 mls/hr IV .Q8H RAKEL Stop: 10/03/22 09:44 Last Admin: 09/03/22 09:57 Dose: 125 mls/hr Lorazepam (Lorazepam 2 Mg/1 Ml Vial) 2 mg IV UD PRN; Protocol PRN Reason: EtOH Withdrawal AWSS Score 8,9 Stop: 10/03/22 01:08 Lorazepam (Lorazepam 2 Mg/1 Ml Vial) 3 mg IV ONCE PRN; Protocol PRN Reason: EtOH Withdrawal AWSS Score 10+ Lorazepam (Lorazepam 2 Mg/1 Ml Vial) 1 mg IV UD PRN; Protocol PRN Reason: EtOH Withdrawal AWSS Score 6,7 Stop: 10/03/22 01:08 Metoprolol Succinate (Metoprolol Succ 50mg Ext Rel Tab) 50 mg PO QAM RAKEL Stop: 10/03/22 11:44 Nitroglycerin (Nitroglycerin Sl 0.4 Mg/Tab Tab) 0.4 mg SL Q5M PRN PRN Reason: Chest Pain Stop: 10/03/22 01:08
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
[2022-09-03] MEDS: METOPROLOL SUCC 50MG EXT REL TAB PO SCH (12:35)
--- NOTE | 2022-09-03 17:19 | Hospitalist Progress Note ---
Date of Service September 03, 2022 Assessment & Plan (1) Alcohol use disorder: (2) Depression: (3) Paroxysmal atrial fibrillation: (4) Elevated troponin: (5) Hypertension: Plan Patient is a 52-year-old male with past medical history of nonischemic cardiomyopathy with mild LV dysfunction dysfunction, EF of 40%-45% in 2013, but in 08/2021, EF of 50%-54%, uncontrolled hypertension, history of prolonged QT interval of 492, obesity presents to the ED with alcohol intoxication and intention of harming himself. Initial plan was to admit the patient to inpatient psychiatric unit; however, due to his elevated alcohol level, paroxysmal A-fib and elevated troponin; he was admitted to telemetry floor. Paroxysmal A-fib Elevated high-sensitivity troponin likely due to demand ischemia Alcohol use disorder Presented to the hospital with alcohol intoxication and suicidal ideation Blood alcohol level of 247 on admission Telemetry showed intermittent atrial fibrillation episodes High-sensitivity troponin elevated; down trended later. Echocardiogram shows EF of 45 to 50% Cardiology evaluated the patient; recommended to continue home beta-hawa. No anticoagulation given [id number] score of 1 Continue alcohol withdrawal protocol with gabapentin and Ativan as needed Depression Suicidal ideation Presented to the hospital with alcohol intoxication and suicidal ideation Evaluated by psychiatry; recommend considering discontinuing one by one No psychiatric medication for now Full code Lovenox for DVT prophylaxis Admission and Anticipated Discharge Date Admission Date: September 02, 2022 Subjective Patient seen and examined at bedside. He is comfortably lying in the bed; not in distress. Denies any tremors or hallucinations. He denies any intentions of harming himself. He reports years of palpitations; denies any chest pain. Review of Systems Review of Systems: All systems reviewed & are unremarkable except as noted in Subjective Physical Exam Physical Exam: Constitutional: WD/WN, vitals as above, NAD, sitting up in bed, pleasant, conversing easily Respiratory: normal respiratory effort, lungs clear to auscultation, no wheeze, rales, rhonchi. Normal insp/exp effort, no accessory muscle use Cardiovascular: RRR, no murmur, no edema Vessels: no JVD or carotid bruit Chest: normal inspection of chest Abdomen: normal bowel sounds, soft, nontender, no hepatosplenomegaly Musculoskeletal: no cyanosis or clubbing, extremities motor strength 5/5 Skin: no rashes, warm and dry normal turgor Neurologic: PERRL, EOMI, accommodation nl, no face palsy, no dysarthria CN's II- XI intact bilaterally and moves all extremities Psychiatric: A+Ox3, euthymic affect Lymphatic: no cervical or axillary lymphadenopathy : deferred Results & Data Results & Data Vital Signs (Past 12 Hours) Vital Signs Temp Pulse Pulse Resp BP BP Pulse Ox 09/03/22 17:09 36.9 C 84 16 171/114 H 96 09/03/22 16:58 86 18 167/93 H 98 09/03/22 14:58 95 H 18 140/81 96 09/03/22 14:02 87 20 163/105 H 94 09/03/22 12:28 36.8 C 97 H 18 155/98 H 94 09/03/22 10:06 96 H 16 142/106 H 97 09/03/22 09:48 152 H 16 173/99 H 96 09/03/22 09:30 138 H 17 96 09/03/22 09:30 132 H 173/99 H 09/03/22 09:00 103 H 16 97 09/03/22 09:00 157/113 H 09/03/22 08:30 96 H 21 97 09/03/22 08:30 125 H 153/114 H 09/03/22 08:00 93 H 16 95 09/03/22 08:00 154/110 H 09/03/22 07:30 93 H 15 93 09/03/22 07:30 145/98 H 09/03/22 07:00 92 H 14 92 09/03/22 07:00 158/109 H 09/03/22 06:30 107 H 14 87 L 09/03/22 06:30 164/105 H 09/03/22 06:00 92 H 23 97 09/03/22 06:00 166/95 H 09/03/22 05:30 86 13 98 09/03/22 05:30 148/96 H 09/03/22 08:51 98 H 09/03/22 08:34 110 H 09/03/22 06:37 89 16 164/105 H 96 09/03/22 05:12 85 16 159/104 H 97 O2 Del Method O2 Flow Rate 09/03/22 17:09 Room Air 09/03/22 16:58 Room Air 09/03/22 14:58 Room Air 09/03/22 14:02 Room Air 09/03/22 12:28 Room Air 09/03/22 10:06 Room Air 09/03/22 09:48 Room Air 09/03/22 09:30 09/03/22 09:30 09/03/22 09:00 09/03/22 09:00 09/03/22 08:30 09/03/22 08:30 09/03/22 08:00 09/03/22 08:00 09/03/22 07:30 09/03/22 07:30 09/03/22 07:00 09/03/22 07:00 09/03/22 06:30 09/03/22 06:30 09/03/22 06:00 09/03/22 06:00 09/03/22 05:30 09/03/22 05:30 09/03/22 08:51 09/03/22 08:34 09/03/22 06:37 Nasal Cannula 2 09/03/22 05:12 Nasal Cannula 2 Laboratory Results Laboratory Results WBC 3.52 K/ul (4.8-10.8) L 09/02/22 11:06 RBC 5.19 M/uL (4.70-6.10) 09/02/22 11:06 Hgb 16.3 g/dl (14.0-18.0) 09/02/22 11:06 Hct 46.6 % (42.0-52.0) 09/02/22 11:06 MCV 89.8 fL (80.0-100.0) 09/02/22 11:06 MCH 31.4 pg (25.0-34.0) 09/02/22 11:06 MCHC 35.0 g/dL (32.0-36.0) 09/02/22 11:06 RDW Std Deviation 39.8 fL (36.4-46.3) 09/02/22 11:06 RDW Coeff of Emilie 12.1 % (11.5-14.5) 09/02/22 11:06 Plt Count 129 K/uL (130-400) L 09/02/22 11:06 MPV 10.5 fL (9.4-12.4) 09/02/22 11:06 Immature Gran % (Auto) 0.3 % 09/02/22 11:06 Neut % (Auto) 59.9 % 09/02/22 11:06 Lymph % (Auto) 28.7 % 09/02/22 11:06 [place] % (Auto) 9.9 % 09/02/22 11:06 Eos % (Auto) 0.3 % 09/02/22 11:06 Baso % (Auto) 0.9 % 09/02/22 11:06 Neut # (Auto) 2.11 K/uL (1.40-6.50) 09/02/22 11:06 Lymph # (Auto) 1.01 K/uL (1.2-3.4) L 09/02/22 11:06 [place] # (Auto) 0.35 K/uL (0.11-0.59) 09/02/22 11:06 Eos # (Auto) 0.01 K/uL (0-0.50) 09/02/22 11:06 Baso # (Auto) 0.03 K/uL (0-0.2) 09/02/22 11:06 Immature Gran # (Auto) 0.01 K/uL (0.01-0.20) 09/02/22 11:06 Sodium 136 mmol/L (136-145) 09/02/22 11:06 Potassium 3.8 mmol/L (3.5-5.1) 09/02/22 11:06 Chloride 98 mmol/L (98-107) 09/02/22 11:06 Carbon Dioxide 23 mmol/L (21-32) 09/02/22 11:06 Anion Gap 15 (3-11) H 09/02/22 11:06 BUN 7 mg/dl (6-23) 09/02/22 11:06 Creatinine 0.94 mg/dl (0.6-1.4) 09/02/22 11:06 Est Cr Clr Drug Dosing 97.3 ml/min 09/02/22 11:06 Est GFR ( Amer) 106.1 ml/min 09/02/22 11:06 Est GFR (Non-Af Amer) 91.6 ml/min 09/02/22 11:06 BUN/Creatinine Ratio 7.4 (10-20) L 09/02/22 11:06 Glucose 93 mg/dl (70-99(Fasting)) 09/02/22 11:06 Calcium 9.0 mg/dl (8.5-10.1) 09/02/22 11:06 Magnesium Cancelled 09/02/22 16:16 Total Bilirubin 1.0 mg/dl (0.2-1.0) 09/02/22 11:06 AST 112 U/L (13-39) H 09/02/22 11:06 ALT 137 U/L (7-52) H 09/02/22 11:06 Alkaline Phosphatase 64 U/L (34-104) 09/02/22 11:06 Troponin I High Sens 38.7 pg/ml (0-20) H 09/03/22 10:43 Total Protein 7.1 gm/dl (6.0-8.3) 09/02/22 11:06 Albumin 4.3 gm/dl (3.4-5.0) 09/02/22 11:06 Globulin 2.8 gm/dl (2.5-4.0) 09/02/22 11:06 Albumin/Globulin Ratio 1.5 (0.9-2) 09/02/22 11:06 Vitamin B12 551 pg/ml (180-914) 09/03/22 05:43 TSH 1.565 uIu/ml (0.300-4.500) 09/02/22 11:06 Urine Color Yellow 09/02/22 10:30 Urine Appearance Clear (Clear) 09/02/22 10:30 Urine pH 5.5 (4.5-7.5) 09/02/22 10:30 Ur Specific [place] 1.004 (1.000-1.030) 09/02/22 10:30 Urine Protein Negative (Negative) 09/02/22 10:30 Urine Glucose (UA) Negative (Negative) 09/02/22 10:30 Urine Ketones Negative (Negative) 09/02/22 10:30 Urine Blood Negative (Negative) 09/02/22 10:30 Urine Nitrite Negative (Negative) 09/02/22 10:30 Urine Bilirubin Negative (Negative) 09/02/22 10:30 Urine Urobilinogen Negative (Negative) 09/02/22 10:30 Ur Leukocyte Esterase Negative (Negative) 09/02/22 10:30 Salicylates < 3.0 mg/dl (3.0-30) L 09/02/22 11:06 Urine Opiates Screen Neg (Neg) 09/02/22 10:30 Ur Methadone, Qual Neg (Neg) 09/02/22 10:30 Acetaminophen < 3 ug/ml (10-30) L 09/02/22 11:06 Urine Barbiturates Neg (Neg) 09/02/22 10:30 Ur Phencyclidine (PCP) Neg (Neg) 09/02/22 10:30 U Amphetamin/Meth Scrn Neg (Neg) 09/02/22 10:30 MDMA (Ecstasy) Screen Neg (Neg) 09/02/22 10:30 U Benzodiazepines Scrn Neg (Neg) 09/02/22 10:30 Ur Cocaine Metabolite Neg (Neg) 09/02/22 10:30 U Marijuana (THC) Screen Neg (Neg) 09/02/22 10:30 Ethyl Alcohol mg/dL 247.4 mg/dl (<10.0) H 09/02/22 11:06 SARS-CoV-2, RNA, NAAT NEGATIVE (NEGATIVE) 09/02/22 Unknown
[2022-09-04] MEDS: GABAPENTIN 600 MG TAB PO SCH ×2 (05:30→13:31)
[2022-09-04 06:58] LABS: Basophils # (auto) 0.02 K/uL (0-0.2); Basophils % (auto) 0.4 %; Eosinophils # (auto) 0.09 K/uL (0-0.50); Eosinophils % (auto) 1.8 %; Hematocrit (blood only) 44.1 % (42.0-52.0); Immature Granulocytes # (auto) 0.01 K/uL (0.01-0.20); Immature Granulocytes % (auto) 0.2 %; Lymphocytes # (auto) 1.96 K/uL (1.2-3.4); Lymphocytes % (auto) 38.7 %; Mean Corpuscular Hemoglobin 31.9 pg (25.0-34.0); Mean Corpuscular Volume 93.8 fL (80.0-100.0); Monocytes # (auto) 0.51 K/uL (0.11-0.59); Monocytes % (auto) 10.1 %; Neutrophils # (auto) 2.47 K/uL (1.40-6.50); Neutrophils % (auto) 48.8 %; Platelet Count 112 K/uL (130-400); RDW Coefficient of Variation 12.2 % (11.5-14.5); RDW Standard Deviation 42.1 fL (36.4-46.3); White Blood Count 5.06 K/ul (4.8-10.8)
[2022-09-04 07:22] LABS: Albumin Globulin Ratio 1.6 (0.9-2); Albumin Level 3.7 gm/dl (3.4-5.0); Bilirubin,Total 0.9 mg/dl (0.2-1.0); Calcium 8.9 mg/dl (8.5-10.1); Creatinine Clr Calc Pharmacy 83.2 ml/min; Est GFR (African American) 87.7 ml/min; Est GFR (Non-African American) 75.7 ml/min; Globulin 2.3 gm/dl (2.5-4.0); Potassium 3.5 mmol/L (3.5-5.1)
[2022-09-04] MEDS: METOPROLOL SUCC 50MG EXT REL TAB PO SCH (09:06)
[2022-09-04] MEDS: THIAMINE HCL 100 MG in SYRINGE 9 ML IV SCH (09:06)
[2022-09-04] MEDS: FOLIC ACID 1 MG in SYRINGE 9.8 ML IV SCH (09:06)
[2022-09-04] MEDS: ENOXAPARIN INJ 40 MG/0.4 ML SYR SQ SCH (09:07)
[2022-09-04] MEDS: lisinopril 10 MG TAB PO SCH (10:15)
--- NOTE | 2022-09-04 10:52 | Cardiology Progress Note ---
Date of Service September 04, 2022 Assessment & Plan (1) Paroxysmal atrial fibrillation: (2) Hypertension: (3) Elevated troponin: (4) Depression with suicidal ideation: (5) Alcohol abuse: Plan Patient admitted for mental health evaluation/suicide ideation. Hypertensive on admission in setting of non compliance with medications and alcohol withdrawal Incidentally found to have minimally elevated troponin. Echo without changes or new wall motion abnormalities. Minimally elevated troponin not indicative of ACS. During initial evaluation, alcohol withdrawal, patient had transient paroxysmal atrial fibrillation lasting approx 2 hours. Converted spontaneously to NSR. Resume metoprolol 50 mg daily (prior home dose). [id number] score of 1, low risk for embolic stroke. No anticoagulation intiated at this time Persistent uncontrolled hypertension Continue metoprolol succinate 50 resume lisinopril 10 mg daily Titrate as tolerated/needed Replace and monitor electrolytes He has a history of prolonged QT interval, so will need to monitor closely with psychiatric medications Case discussed with Dr. Sales. Admission and Anticipated Discharge Date Admission Date: September 02, 2022 Supervising Physician Co-Signing Physician Notes Patient seen and examined. Overall doing well since hospitalization heart rate and blood pressures trending towards better control plan as above continue metoprolol succinate 50 mg/day Lisinopril restarted. Subjective Patient resting in bed comfortably. No recurrent atrial arrhythmias. BP remains elevated. Denies chest pain or SOB. Admits to anxiety and stressors. No dizziness or lightheadedness. Review of Systems Review of Systems: All systems reviewed & are unremarkable except as noted in HPI & below Physical Exam Constitutional: WD/WN, vitals as above well nourished; no acute distress Neck: normal visual inspection Respiratory: normal respiratory effort, lungs clear to auscultation Cardiovascular: Rate/Rhythm: regular rate and regular rhythm Heart Sounds: normal S1 and normal S2; no murmur Vessels: no JVD Extremities: no edema Gastrointestinal (Abdomen): normal bowel sounds, soft, nontender, no hepatosplenomegaly Skin: no rashes, warm and dry Neurologic: PERRL, EOMI, accommodation nl, no face palsy, no dysarthria Results & Data Vital Signs (Past 12 Hours) Vital Signs Temp Pulse Pulse Resp BP Pulse Ox O2 Del Method 09/04/22 07:15 67 09/04/22 06:37 36.7 C 64 18 151/91 H 96 Room Air 09/04/22 04:00 36.5 C 71 19 182/95 H 95 Room Air 09/03/22 23:41 67 18 146/82 H 99 Room Air 09/03/22 23:11 67 09/03/22 22:57 36.8 C 71 19 159/91 H 98 Room Air Laboratory Results Cardiac Enzymes 09/03/22 09/04/22 Range/Units 10:43 05:36 AST 48 H (13-39) U/L Troponin I High Sens 38.7 H (0-20) pg/ml CBC 09/04/22 Range/Units 05:36 WBC 5.06 (4.8-10.8) K/ul RBC 4.70 (4.70-6.10) M/uL Hgb 15.0 (14.0-18.0) g/dl Hct 44.1 (42.0-52.0) % Plt Count 112 L (130-400) K/uL Neut # (Auto) 2.47 (1.40-6.50) K/uL Lymph # (Auto) 1.96 (1.2-3.4) K/uL [place] # (Auto) 0.51 (0.11-0.59) K/uL Eos # (Auto) 0.09 (0-0.50) K/uL Baso # (Auto) 0.02 (0-0.2) K/uL Comprehensive Metabolic Panel 09/04/22 Range/Units 05:36 Sodium 141 (136-145) mmol/L Potassium 3.5 (3.5-5.1) mmol/L Chloride 103 (98-107) mmol/L Carbon Dioxide 33 H (21-32) mmol/L BUN 11 (6-23) mg/dl Creatinine 1.10 (0.6-1.4) mg/dl Glucose 93 (70-99(Fasting)) mg/dl Calcium 8.9 (8.5-10.1) mg/dl AST 48 H (13-39) U/L ALT 83 H (7-52) U/L Alkaline Phosphatase 47 (34-104) U/L Total Protein 6.0 (6.0-8.3) gm/dl Albumin 3.7 (3.4-5.0) gm/dl Intake and Output 09/03/22 09/04/22 09/04/22 22:59 06:59 14:59 Intake Total 1780.833 / 1930.833 Balance 1780.833 / 1930.833 Intake: IV 920.833 / 920.833 Lactated Ringer's 1,000 ml @ 920.833 / 920.833 125 mls/hr IV .Q8H [facility] Rx#: [id number] Oral 860 / 1010 Diagnostic Findings telemetry reviewed: NSR 70-80's, no recurrent atrial arrhythmias. Echo results reviewed from 09/03/22: LV is normal in size Moderate concentric LVH Mild global hypokinesis EF 45-50% Borderline aortic root dilatation. No signficant valvular disease No pericardial effusion. Medications Administered Current Inpatient Medications Clonidine HCl (Clonidine Hcl 0.1 Mg Tab) 0.1 mg PO Q4H PRN PRN Reason: Hypertension Stop: 10/03/22 01:08 Last Admin: 09/04/22 05:48 Dose: 0.1 mg Enoxaparin Sodium (Enoxaparin Inj 40 Mg/0.4 Ml Syr) 40 mg SQ Q24H [facility] Stop: 10/03/22 08:59 Last Admin: 09/04/22 09:07 Dose: 40 mg Gabapentin (Gabapentin 600 Mg Tab) 600 mg PO Q24H [facility] Stop: 09/06/22 14:01 Gabapentin (Gabapentin 600 Mg Tab) 600 mg PO Q12H [facility] Stop: 09/05/22 14:01 Gabapentin (Gabapentin 600 Mg Tab) 600 mg PO Q8H [facility] Stop: 09/04/22 14:01 Last Admin: 09/04/22 05:30 Dose: 600 mg Folic Acid 1 mg/ Syringe 10 mls @ 5 mls/min IV QAM [facility] Stop: 10/03/22 08:59 Last Admin: 09/04/22 09:06 Dose: 5 mls/min Thiamine HCl 100 mg/ Syringe 10 mls @ 2 mls/min IV QAM [facility] Stop: 10/03/22 08:59 Last Admin: 09/04/22 09:06 Dose: 2 mls/min Lisinopril (Lisinopril 10 Mg Tab) 10 mg PO QAM [facility] Stop: 10/04/22 09:14 Last Admin: 09/04/22 10:15 Dose: 10 mg Lorazepam (Lorazepam 2 Mg/1 Ml Vial) 2 mg IV UD PRN; Protocol PRN Reason: EtOH Withdrawal AWSS Score 8,9 Stop: 10/03/22 01:08 Lorazepam (Lorazepam 2 Mg/1 Ml Vial) 3 mg IV ONCE PRN; Protocol PRN Reason: EtOH Withdrawal AWSS Score 10+ Lorazepam (Lorazepam 2 Mg/1 Ml Vial) 1 mg IV UD PRN; Protocol PRN Reason: EtOH Withdrawal AWSS Score 6,7 Stop: 10/03/22 01:08 Metoprolol Succinate (Metoprolol Succ 50mg Ext Rel Tab) 50 mg PO QAM RAK[facility] Stop: 10/03/22 11:44 Last Admin: 09/04/22 09:06 Dose: 50 mg Nitroglycerin (Nitroglycerin Sl 0.4 Mg/Tab Tab) 0.4 mg SL Q5M PRN PRN Reason: Chest Pain Stop: 10/03/22 01:08
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
--- NOTE | 2022-09-04 11:57 | Electrocardiogram Report ---
Test Reason : Blood Pressure : / mmHG Vent. Rate : 105 BPM Atrial Rate : 312 BPM P-R Int : 000 ms QRS Dur : 102 ms QT Int : 368 ms P-R-T Axes : 000 011 -19 degrees QTc Int : 486 ms Atrial fibrillation with rapid ventricular response Minimal voltage criteria for LVH, may be normal variant Nonspecific T wave abnormality Abnormal ECG When compared with ECG of 02-SEP-2022 20:49, Atrial fibrillation has replaced Sinus rhythm Confirmed by Rob Maciel [id number] on 09/04/2022 11:56:51 AM Referred By: REFERRED SELF Confirmed By:Emiliano Maciel
--- NOTE | 2022-09-04 17:41 | Hospitalist Progress Note ---
Date of Service September 04, 2022 Assessment & Plan (1) Alcohol use disorder: (2) Depression: (3) Paroxysmal atrial fibrillation: (4) Elevated troponin: (5) Hypertension: Plan Per Dr. Clifton Conner's notes with addendum This a 52-year-old male with past medical history of nonischemic cardiomyopathy with mild LV dysfunction dysfunction, EF of 40%-45% in 2013, but in 08/2021, EF of 50%-54%, uncontrolled hypertension, history of prolonged QT interval of 492, obesity presents to the ED with alcohol intoxication and intention of harming himself. Initial plan was to admit the patient to inpatient psychiatric unit; however, due to his elevated alcohol level, paroxysmal A-fib and elevated troponin; he was admitted to telemetry floor. Paroxysmal A-fib Elevated high-sensitivity troponin likely due to demand ischemia Alcohol use disorder Presented to the hospital with alcohol intoxication and suicidal ideation Blood alcohol level of 247 on admission Telemetry showed intermittent atrial fibrillation episodes High-sensitivity troponin elevated; down trended later. Echocardiogram shows EF of 45 to 50% Cardiology evaluated the patient; recommended to continue home beta-hawa. No anticoagulation given [id number] score of 1 Continue alcohol withdrawal protocol with gabapentin and Ativan as needed 09/04 Remains in sinus rhythm Continue beta-hawa, anticoagulation not recommended by cardiology service Patient doing well from alcohol withdrawal standpoint Continue close monitoring Continue gabapentin taper and alcohol withdrawal protocol If patient does well overnight, will be transition to inpatient psych treatment tomorrow Depression Suicidal ideation Presented to the hospital with alcohol intoxication and suicidal ideation Evaluated by psychiatry; recommend considering discontinuing one by one No psychiatric medication for now Full code Lovenox for DVT prophylaxis Disposition Per above Admission and Anticipated Discharge Date Admission Date: September 02, 2022 Subjective Follow-up for alcohol intoxication, suicidal ideation, etc. Seen sitting up in bed, watching TV, comfortable, not in distress States he feels fine overall today Denies anxiety, tremors, confusion, hallucinations No shortness of breath, chest pain, palpitations, dizziness Reports mood is okay today, denies suicidal ideations No other symptom Review of Systems Review of Systems: all noted and negative except for above Physical Exam Physical Exam: General- oriented x 3, not in distress, speaks in sentences with no effort or accessory muscle use Eyes- anicteric Neck- no JVD Lungs- clear breath sounds bilaterally, no rales/wheezes Heart- normal rate, regular rhythm; no murmurs Abdomen- normal bowel sounds, nondistended, soft, nontender Extremities- no pretibial edema, no calf tenderness Neuro- alert, oriented x 3; no gross focal neurologic deficits Skin- warm & dry Results & Data Results & Data Vital Signs (Past 12 Hours) Vital Signs Temp Pulse Pulse Resp BP Pulse Ox O2 Del Method 09/04/22 15:32 83 09/04/22 15:27 37.2 C 76 18 150/91 H 94 Room Air 09/04/22 13:11 37.0 C 73 16 147/80 H 94 Room Air 09/04/22 07:15 67 09/04/22 06:37 36.7 C 64 18 151/91 H 96 Room Air all noted and reviewed including below
[2022-09-05] MEDS: GABAPENTIN 600 MG TAB PO SCH ×2 (01:53→14:54)
[2022-09-05] MEDS: METOPROLOL SUCC 50MG EXT REL TAB PO SCH (08:24)
[2022-09-05] MEDS: lisinopril 10 MG TAB PO SCH (08:24)
[2022-09-05] MEDS: LORazepam 0.5 MG TAB PO PRN ×2 (08:24→18:39)
[2022-09-05] MEDS: ENOXAPARIN INJ 40 MG/0.4 ML SYR SQ SCH (08:25)
[2022-09-05] MEDS: THIAMINE HCL 100 MG in SYRINGE 9 ML IV SCH (08:25)
[2022-09-05] MEDS: FOLIC ACID 1 MG in SYRINGE 9.8 ML IV SCH (08:25)
--- NOTE | 2022-09-05 09:03 | Hospitalist Progress Note ---
Date of Service September 05, 2022 Assessment & Plan (1) Alcohol use disorder: (2) Depression: (3) Paroxysmal atrial fibrillation: (4) Elevated troponin: (5) Hypertension: Plan Per Dr. Clifton Conner's notes with addendum This a 52-year-old male with past medical history of nonischemic cardiomyopathy with mild LV dysfunction dysfunction, EF of 40%-45% in 2013, but in 08/2021, EF of 50%-54%, uncontrolled hypertension, history of prolonged QT interval of 492, obesity presents to the ED with alcohol intoxication and intention of harming himself. Initial plan was to admit the patient to inpatient psychiatric unit; however, due to his elevated alcohol level, paroxysmal A-fib and elevated troponin; he was admitted to telemetry floor. Alcohol Intoxication Alcohol use disorder Presented to the hospital with alcohol intoxication and suicidal ideation Blood alcohol level of 247 on admission 09/05 patient did well overall no signs of overt DTs AWSS score now 1-2 to complete Gabapentin taper today and tomorrow Paroxysmal A-fib Elevated high-sensitivity troponin likely due to demand ischemia continue usual Metoprolol and Lisinopril Paroxysmal A-fib Elevated high-sensitivity troponin likely due to demand ischemia Echo: EF of 45 to 50%, without changes or new wall motion abnormalities. Minimal troponin elevation, ACS ruled out transient A fib episode in the setting of alcohol intoxication Cardiology SVC: continue usual Metoprolol [id number] score of 1, low risk for embolic stroke. No anticoagulation intiated at this time Depression Suicidal ideation Presented to the hospital with alcohol intoxication and suicidal ideation Evaluated by psychiatry- recommend inpatient psychiatric care medically stable for discharge from Hospitalist S[facility] Full code Lovenox for DVT prophylaxis Disposition Per above plan of care discussed with patient in detail and at length all questions answered he is understanding, agreeable, comfortable with the plan of care Admission and Anticipated Discharge Date Admission Date: September 02, 2022 Subjective ff up for alc intoxication, suicidal ideation, etc seen resting in bed, comfortable watching TV pleasant states he feels fine overall had some anxiety this morning, better after ativan PO no chest pain, dyspnea, palpitations, dizziness no other new symptoms states he is ready and would like to transition to behavioral unit today Review of Systems Review of Systems: all noted and negative except for above Physical Exam Physical Exam: General- oriented x 3, not in distress, speaks in sentences with no effort or accessory muscle use Eyes- anicteric Neck- no JVD Lungs- clear breath sounds bilaterally, no rales/wheezes Heart- normal rate, regular rhythm; no murmurs Abdomen- normal bowel sounds, nondistended, soft, nontender Extremities- no pretibial edema, no calf tenderness no tremors Neuro- alert, oriented x 3; no gross focal neurologic deficits Skin- warm & dry Results & Data Results & Data Vital Signs (Past 12 Hours) Vital Signs Temp Pulse Pulse Resp BP Pulse Ox O2 Del Method 09/05/22 07:46 36.8 C 66 18 166/97 H 98 Room Air 09/05/22 07:17 66 09/05/22 00:32 36.5 C 62 18 151/89 H 97 09/04/22 23:53 63 all noted and reviewed including below
[2022-09-05] MEDS ORDERED: lisinopril 10 MG TAB PO ONE (09:15)
--- NOTE | 2022-09-05 09:15 | Discharge Summary ---
Discharge Summary Date of Service September 05, 2022 Notes For Next Care Provider Monitor blood pressure Medication Changes From Visit Duloxetine discontinued Admission HPI Per Admitting Provider HISTORY OF PRESENT ILLNESS: This is a 52-year-old male with past medical history significant for nonischemic cardiomyopathy with mild LV dysfunction dysfunction, EF of 40%-45% in 2013, but in 08/2021, EF of 50%-54%, uncontrolled hypertension, history of prolonged QT interval of 492, obesity. The patient says currently not taking any prescription medications. He is drinking 6 beers daily.. Today, he had thoughts of hurting himself, thought of drinking antifreeze and also carbon monoxide, but he came to hospital. Plan was to send him to inpatient psychiatric unit, but the patient was having alcohol withdrawal and elevated BP. His alcohol level was 247. Troponin level was 57. . The patient received a dose of Ativan. Currently, somewhat drowsy, but answering questions appropriately. Denies any chest pain, no shortness of breath or chills, some nausea. Currently, no cough, no fevers, no difficulty swallowing. No headache, no blurred visions, no sore throat. No abdominal pain. Normal bowel and bladder movements. Admission Exam Per Admitting Provider GENERAL: The patient is obese, not in acute distress. VITAL SIGNS: Temperature 36.8, pulse 94, respiratory rate 16, blood pressure 125/110, oxygen 94% on room air. HEENT: Pupils equal, round and reactive to light. Extraocular muscles intact. No facial droop. Oral mucosa moist. NECK: No JVD, no neck masses. CARDIOVASCULAR: S1 and S2 heard. Regular rate and rhythm. No murmur, no gallop. RESPIRATORY SYSTEM: Normal AP diameter. No accessory muscle use. No wheezing, no crackles. ABDOMEN: Soft, bowel sounds present, nontender, no distention. CENTRAL NERVOUS SYSTEM: Alert and oriented. Speech is clear. No facial droop. Obeys simple commands. Moves extremities. EXTREMITIES: No edema, no erythema. Principal Dx & Hospital Course #1 = Principal Diagnosis (1) Alcohol use disorder: (2) Depression: (3) Paroxysmal atrial fibrillation: (4) Elevated troponin: (5) Hypertension: Plan Per Dr. Benson's notes with addendum This a 52-year-old male with past medical history of nonischemic cardiomyopathy with mild LV dysfunction dysfunction, EF of 40%-45% in 2013, but in 08/2021, EF of 50%-54%, uncontrolled hypertension, history of prolonged QT interval of 492, obesity presents to the ED with alcohol intoxication and intention of harming himself. Initial plan was to admit the patient to inpatient psychiatric unit; however, due to his elevated alcohol level, paroxysmal A-fib and elevated troponin; he was admitted to telemetry floor. Alcohol Intoxication Alcohol use disorder Presented to the hospital with alcohol intoxication and suicidal ideation Blood alcohol level of 247 on admission 09/05 patient did well overall no signs of overt DTs AWSS score now 1-2 to complete Gabapentin taper today and tomorrow Paroxysmal A-fib Elevated high-sensitivity troponin likely due to demand ischemia continue usual Metoprolol and Lisinopril Paroxysmal A-fib Elevated high-sensitivity troponin likely due to demand ischemia Echo: EF of 45 to 50%, without changes or new wall motion abnormalities. Minimal troponin elevation, ACS ruled out transient A fib episode in the setting of alcohol intoxication Cardiology SVC: continue usual Metoprolol [id number] score of 1, low risk for embolic stroke. No anticoagulation intiated at this time Depression Suicidal ideation Presented to the hospital with alcohol intoxication and suicidal ideation Evaluated by psychiatry- recommend inpatient psychiatric care medically stable for discharge from Hospitalist [facility] Full code Lovenox for DVT prophylaxis Disposition Per above plan of care discussed with patient in detail and at length all questions answered he is understanding, agreeable, comfortable with the plan of care Discharge Exam General- oriented x 3, not in distress, speaks in sentences with no effort or accessory muscle use Eyes- anicteric Neck- no JVD Lungs- clear breath sounds bilaterally, no rales/wheezes Heart- normal rate, regular rhythm; no murmurs Abdomen- normal bowel sounds, nondistended, soft, nontender Extremities- no pretibial edema, no calf tenderness no tremors Neuro- alert, oriented x 3; no gross focal neurologic deficits Skin- warm & dry Updated Medication List Medication Instructions Recorded Confirmed Type duloxetine 30 mg capsule,delayed 300 mg PO DAILY 09/30/20 09/30/20 History release folic acid 1 mg tablet 1 mg PO DAILY 09/30/20 09/30/20 History meloxicam 15 mg tablet 15 mg PO DAILY 09/30/20 09/30/20 History sildenafil 100 mg tablet 100 mg PO DAILY PRN Sexual Activity 09/30/20 09/30/20 History thiamine HCl (vitamin B1) 100 mg 100 mg PO DAILY 09/30/20 09/30/20 History tablet gabapentin 600 mg tablet 600 mg PO Q12H 1 day #2 tabs 09/05/22 Rx gabapentin 600 mg tablet 600 mg PO Q24H 1 day #1 tab 09/05/22 Rx lisinopril 10 mg tablet 10 mg PO QAM 30 days #30 tabs 09/05/22 Rx metoprolol succinate 50 mg 50 mg PO QAM 30 days #30 tabs 09/05/22 Rx tablet,extended release 24 hr Hospital Stay Data Consultations 09/02/22 21:15 ED Decision to Admit Stat 09/03/22 08:00 Consult Psychiatry Routine 09/03/22 10:29 Consult Cardiology Routine Pending Results Patient Have Any Pending Studies at Discharge: No Discharge Instructions Given to Patient (Per Discharging Provider) Resume your usual medic patient regimen. PLEASE CALL YOUR PRIMARY CARE PHYSICIAN OR RETURN TO THE ER IF WITH WORSENING OF SYMPTOMS, INCLUDING Chest pain, shortness of breath, headache, palpitations, dizziness, etc. FOLLOW UP WITH PRIMARY CARE PHYSICIAN 1 week after discharge from the hospital. Follow-up with psychiatrist regularly, as scheduled. Total Time Total Time Spent Total Time Spent (In Minutes): <30 minutes
--- NOTE | 2022-09-05 11:10 | Cardiology Progress Note ---
Date of Service September 05, 2022 Assessment & Plan (1) Paroxysmal atrial fibrillation: (2) Hypertension: (3) Elevated troponin: (4) Depression with suicidal ideation: (5) Alcohol abuse: Plan Patient admitted for mental health evaluation/suicide ideation. Hypertensive on admission in setting of non compliance with medications and alcohol withdrawal Incidentally found to have minimally elevated troponin. Echo without changes or new wall motion abnormalities. Minimally elevated troponin not indicative of ACS. During initial evaluation, alcohol withdrawal, patient had transient paroxysmal atrial fibrillation lasting approx 2 hours. Converted spontaneously to NSR. Resume metoprolol 50 mg daily (prior home dose). [id number] score of 1, low risk for embolic stroke. No anticoagulation initiated at this time Supplement electrolytes and treat alcohol withdrawal. Persistent uncontrolled hypertension Continue metoprolol succinate 50 Lisinopril resumed and increase to 20 mg daily today Titrate as tolerated/needed He has a history of prolonged QT interval, so will need to monitor closely with psychiatric medications Stable cardiac symptoms to move to psych unit for ongoing treatment. Continue above medications. will sign off. please notify bss solution architect provider with additional questions or concerns. Case discussed with Dr. Sales. Admission and Anticipated Discharge Date Admission Date: September 02, 2022 Supervising Physician Co-Signing Physician Notes Patient seen and examined personally. Assessment and plan as above. Overall doing well from cardiac standpoint patient anxious to proceed with psychiatric evaluation and treatment Subjective Patient resting in bed comfortably. Denies acute cardiac complaints. Denies chest pain or SOB. No headaches. No dizziness. Review of Systems Review of Systems: All systems reviewed & are unremarkable except as noted in HPI & below Physical Exam Physical Exam: NOT performed Constitutional: WD/WN, vitals as above well nourished; no acute distress Neck: normal visual inspection Respiratory: normal respiratory effort, lungs clear to auscultation Cardiovascular: Rate/Rhythm: regular rate and regular rhythm Heart Sounds: normal S1 and normal S2; no murmur Vessels: no JVD Extremities: no edema Gastrointestinal (Abdomen): normal bowel sounds, soft, nontender, no hepatosplenomegaly Skin: no rashes, warm and dry Neurologic: PERRL, EOMI, accommodation nl, no face palsy, no dysarthria Results & Data Vital Signs (Past 12 Hours) Vital Signs Temp Pulse Pulse Resp BP Pulse Ox O2 Del Method 09/05/22 07:46 36.8 C 66 18 166/97 H 98 Room Air 09/05/22 07:17 66 09/05/22 00:32 36.5 C 62 18 151/89 H 97 09/04/22 23:53 63 Laboratory Results Intake and Output 09/04/22 09/05/22 09/05/22 22:59 06:59 14:59 Intake Total 450 / 570 120 / 570 Balance 450 / 570 120 / 570 Intake: Oral 450 / 570 120 / 570 Other: Weight 95 kg Weight Measurement Method Built in [facility] Diagnostic Findings Telemetry reviewed: NSR in the 80's. No recurrent atrial arrhythmias Medications Administered Current Inpatient Medications Clonidine HCl (Clonidine Hcl 0.1 Mg Tab) 0.1 mg PO Q4H PRN PRN Reason: Hypertension Stop: 10/03/22 01:08 Last Admin: 09/04/22 05:48 Dose: 0.1 mg Enoxaparin Sodium (Enoxaparin Inj 40 Mg/0.4 Ml Syr) 40 mg SQ Q24H COUNTS INCLUDE 234 BEDS AT THE [facility] Stop: 10/03/22 08:59 Last Admin: 09/05/22 08:25 Dose: 40 mg Gabapentin (Gabapentin 600 Mg Tab) 600 mg PO Q24H RAKEL Stop: 09/06/22 14:01 Gabapentin (Gabapentin 600 Mg Tab) 600 mg PO Q12H COUNTS INCLUDE 234 BEDS AT THE [facility] Stop: 09/05/22 14:01 Last Admin: 09/05/22 01:53 Dose: 600 mg Folic Acid 1 mg/ Syringe 10 mls @ 5 mls/min IV QAM COUNTS INCLUDE 234 BEDS AT THE [facility] Stop: 10/03/22 08:59 Last Admin: 09/05/22 08:25 Dose: 5 mls/min Thiamine HCl 100 mg/ Syringe 10 mls @ 2 mls/min IV QAM COUNTS INCLUDE 234 BEDS AT THE [facility] Stop: 10/03/22 08:59 Last Admin: 09/05/22 08:25 Dose: 2 mls/min Lisinopril (Lisinopril 20 Mg Tab) 20 mg PO QAM COUNTS INCLUDE 234 BEDS AT THE [facility] Stop: 10/06/22 08:59 Lorazepam (Lorazepam 2 Mg/1 Ml Vial) 2 mg IV UD PRN; Protocol PRN Reason: EtOH Withdrawal AWSS Score 8,9 Stop: 10/03/22 01:08 Lorazepam (Lorazepam 2 Mg/1 Ml Vial) 3 mg IV ONCE PRN; Protocol PRN Reason: EtOH Withdrawal AWSS Score 10+ Lorazepam (Lorazepam 2 Mg/1 Ml Vial) 1 mg IV UD PRN; Protocol PRN Reason: EtOH Withdrawal AWSS Score 6,7 Stop: 10/03/22 01:08 Last Admin: 09/04/22 20:06 Dose: 1 mg Lorazepam (Lorazepam 0.5 Mg Tab) 0.5 mg PO Q4H PRN PRN Reason: Anxiety Stop: 10/05/22 08:02 Last Admin: 09/05/22 08:24 Dose: 0.5 mg Metoprolol Succinate (Metoprolol Succ 50mg Ext Rel Tab) 50 mg PO QAM RAKEL Stop: 10/03/22 11:44 Last Admin: 09/05/22 08:24 Dose: 50 mg Nitroglycerin (Nitroglycerin Sl 0.4 Mg/Tab Tab) 0.4 mg SL Q5M PRN PRN Reason: Chest Pain Stop: 10/03/22 01:08
[2022-09-05] MEDS ORDERED: hydrALAZINE HCL 20 MG/ML VIAL IV PRN (17:34)
[2022-09-06] MEDS: METOPROLOL SUCC 50MG EXT REL TAB PO SCH (07:45)
[2022-09-06] MEDS: ENOXAPARIN INJ 40 MG/0.4 ML SYR SQ SCH (07:46)
[2022-09-06] MEDS: FOLIC ACID 1 MG in SYRINGE 9.8 ML IV SCH (07:47)
[2022-09-06] MEDS: THIAMINE HCL 100 MG in SYRINGE 9 ML IV SCH (07:47)
[2022-09-06 07:57] LABS: Creatinine Clr Calc Pharmacy 82.5 ml/min; Est GFR (African American) 86.8 ml/min; Est GFR (Non-African American) 74.9 ml/min
[2022-09-06] MEDS ORDERED: lisinopril 20 MG TAB PO SCH (09:00)
[2022-09-06] MEDS: LORazepam 0.5 MG TAB PO PRN (10:32)
[2022-09-06] MEDS ORDERED: GABAPENTIN 600 MG TAB PO SCH (14:00)
== END 2022-09-06 13:07 | DRG 897 ==
LOC: ED 10:15 → EDINP 23:00 → SUATTDRO 23:00 → 2W 09-03 01:09

== ENCOUNTER 2022-09-06 12:14 | Inpatient (IN) ==
[2022-09-06] MEDS ORDERED: SODIUM CHLORIDE 0.65% NA SOLN 45 ML (OCEAN) PRN (12:53)
[2022-09-06] MEDS ORDERED: ALUMINUM/MAGNESIUM SUSP 30 ML UDC PO PRN (12:53)
[2022-09-06] MEDS ORDERED: hydrOXYzine HCl 25 MG TAB PO PRN ×2 (12:53)
[2022-09-06] MEDS ORDERED: MAGNESIUM HYDROXIDE SUSP 30 ML UDC PO PRN (12:53)
[2022-09-06] MEDS ORDERED: ACETAMINOPHEN 325 MG TAB PO PRN (12:53)
[2022-09-06] MEDS ORDERED: BISMUTH SUBSALICYLATE LIQD 236 ML PO PRN (12:53)
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
[2022-09-06] MEDS ORDERED: LORazepam 1 MG TAB PO PRN ×3 (15:59)
[2022-09-06] MEDS ORDERED: Ativan PO Alcohol Withdrawal--Active Protocol PO PRN (15:59)
--- NOTE | 2022-09-06 16:33 | Hospitalist Progress Note ---
Date of Service September 06, 2022 Assessment & Plan (1) Alcohol intoxication: Plan: Per Dr. Benson's notes with addendum This a 52-year-old male with past medical history ofnonischemic cardiomyopathy with mild LV dysfunction dysfunction, EF of 40%-45% in 2013, but in 08/2021, EF of 50%-54%, uncontrolled hypertension, history of prolonged QT interval of 492, obesity presents to the ED with alcohol intoxication and intention of harming himself. Initial plan was to admit the patient to inpatient psychiatric unit; however, due to his elevated alcohol level, paroxysmal A-fib and elevated troponin; he was admitted to telemetry floor. Alcohol Intoxication Alcohol use disorder Presented to the hospital with alcohol intoxication and suicidal ideation Blood alcohol level of 247 on admission 09/06 patient did well overall no signs of overt DTs AWSS score now 1-2 to complete Gabapentin today Paroxysmal A-fib Elevated high-sensitivity troponin likely due to demand ischemia Hypertension BP elevated, patient's stress likely contributing continue usual Metoprolol and Lisinopril monitor Paroxysmal A-fib Elevated high-sensitivity troponin likely due to demand ischemia Echo: EF of 45 to 50%,without changes or new wall motion abnormalities. Minimal troponin elevation, ACS ruled out transient A fib episode in the setting of alcohol intoxication Cardiology SVC: continue usual Metoprolol [id number] score of 1, low risk for embolic stroke. No anticoagulation intiated at this time Depression Suicidal ideation Presented to the hospital with alcohol intoxication and suicidal ideation Evaluated by psychiatry- recommend inpatient psychiatric care medically stable for discharge from Hospitalist SVC Full code Lovenox for DVT prophylaxis Disposition Per above plan of care discussed with patient in detail and at length all questions answered he is understanding, agreeable, comfortable with the plan of care Admission and Anticipated Discharge Date Admission Date: September 06, 2022 Subjective ff up for alcohol intoxication, etc seen resting in bed, comfortable states he is getting frustrated from not being transferred to [facility] yet no chest pain, dyspnea, palpitations, dizziness denies tremors, confusion, sweating no other symptoms Review of Systems Review of Systems: all noted and negative except for above Physical Exam Physical Exam: General- oriented x 3, not in distress, speaks in sentences with no effort or accessory muscle use Eyes- anicteric Neck- no JVD Lungs- clear BS bilaterally, no rales/wheezes Heart- normal rate, regular rhythm; no murmurs Abdomen- normal bowel sounds, nondistended, soft, nontender Extremities- no pretibial edema, no calf tenderness Neuro- alert, oriented x 3; no gross focal neurologic deficits Skin- warm & dry Results & Data Results & Data Vital Signs (Past 12 Hours) Vital Signs Temp Pulse Resp BP Pulse Ox O2 Del Method 09/06/22 13:40 36.8 C 87 18 163/91 H 99 Room Air all noted and reviewed including below
[2022-09-06] MEDS ORDERED: cloNIDine HCL 0.1 MG TAB PO ONE (19:15)
[2022-09-07] MEDS ORDERED: lisinopril 20 MG TAB PO SCH (09:00)
[2022-09-07] MEDS ORDERED: FOLIC ACID 1 MG TAB PO SCH (09:00)
[2022-09-07] MEDS ORDERED: THIAMINE HCL 100 MG TAB PO SCH (09:00)
[2022-09-07] MEDS ORDERED: SERTRALINE HCL 50 MG TABLET PO SCH (09:00)
[2022-09-07] MEDS ORDERED: METOPROLOL SUCC 50MG EXT REL TAB PO SCH (09:00)
[2022-09-07] MEDS ORDERED: GABAPENTIN 400 MG CAP PO SCH (09:00)
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
[2022-09-08] MEDS ORDERED: GABAPENTIN 100 MG CAP PO SCH (09:00)
== END 2022-09-07 11:25 | disposition home or self-care (01) | DRG 885 ==
LOC: 3S 13:10

== ENCOUNTER 2022-10-01 14:42 | Inpatient (IN) ==
--- NOTE | 2022-10-01 14:53 | Emergency Department Note ---
Impression & Plan Depression with suicidal ideation, Alcohol intoxication ED Provider Note NAME: RONALD BARNEY AGE: 52 SEX: M : 1970 ARRIVES VIA: [employer] INFORMANT: Patient, psych ED PROVIDER(S): Jose Rincon DO CHIEF COMPLAINT: depression HPI: Patient is a 52 year old male who presents to the ER with a past medical history of major depression, generalized anxiety, alcohol abuse for suicidal ideations with a plan to kill himself by driving car into the [place] and hooking the gas pipe of the tubing and putting it in the car. Denies any auditory visual hallucinations. No belly pain, nausea, vomiting, or diarrhea. No dysuria, urgency, or frequency. No other exacerbating or remitting factors. He denies any chest pain or shortness of breath. PAST MEDICAL HISTORY:See Below PAST SURGICAL HISTORY:See Below FAMILY HISTORY:See Below SOCIAL HISTORY:See Below HOME MEDICATIONS:See Below ALLERGIES:See Below VITALS:See Below PHYSICAL EXAMINATION: GENERAL: Sitting up in bed, alert, smell of alcohol on breath, no acute distress, nontoxic EYE EXAM: normal conjunctiva. PERRL and EOM's grossly intact. OROPHARYNX: no exudate, no erythema, lips, buccal mucosa, and tongue normal and mucous membranes are moist LUNGS: Clear to auscultation. Normal chest wall mechanics HEART: no murmurs, S1 normal and S2 normal ABDOMEN: abdomen soft, non-tender, normo-active bowel sounds, no masses, no rebound or guarding. UPPER EXTREMITIES: upper extremities are grossly normal. LOWER EXTREMITIES: No pitting edema. NEURO EXAM: Normal sensorium, cranial nerves II-XII grossly intact, normal speech, no gross weakness of arms, no gross weakness of legs. PSYCH: Admits to suicidal ideations with a plan to kill himself. Admits to feeling helpless and having his life ruined. He makes good eye contact. Very respectful. MEDICAL DECISION MAKING: Patient is a 52-year-old male with a past medical history of depression, alcohol abuse and paroxysmal A-fib as well as hypertension on lisinopril and metoprolol who presents ER for suicidal plan to drive into the [place] and kill himself via carbon monoxide. He did call the police who brought him in and confirmed the story. He denies all complaints at this time. Labs were obtained and showed a leukopenia 4000. No significant anemia. BMP was unremarkable. T. bili was normal. Mild transaminitis likely secondary to alcohol. UA was clean. Tox was negative. Alcohol was elevated at 285 at 315. He will be sober/less than 100 around 1230. Did discuss with psychiatric care managers. They will reevaluate at around 1230. We will continue to monitor for withdrawal. Patient was signed out Dr. Park at the change shift. Currently there is a 302 petition on chart by her psychiatric customer care representative. ED OBSERVATION: The patient was placed in observation status at 3:10PM. Psychiatric evaluation and medical clearance/stability. During the time in observation, the patient was frequently reassessed and received close monitoring and blood work. On Final reassessment the patient patient was resting comfortably and did not remain slightly hypertensive although this appears to be close to his baseline of 150 and the patient will be signed out at this time. A total observation time of 7.5hrs at 10:20PM to Dr. Park. Triage Nursing notes reviewed. Limited review of prior medical records performed Vital Signs: reviewed and remarkable for no significant abnormalities Differential diagnosis: Mood disorder, infection, hypoglycemia, electrolyte abnormalities, cardiac sources, intracerebral event, toxicologic, trauma, neurologic, as well as other pathologies. ER treatment provided: See below Diagnostics interpreted by me include EKG and cardiac monitoring as listed below: -Laboratory studies:Interpreted by me as stated above in MDM and shown below. Imaging studies: Xrays: As interpreted by me:none CTs show: none Consultation(s): As described in MDM Procedures:none Critical Care: None Past Med/Surg History Social History Smoking Status: Never smoker Tobacco Type: Smokeless Tobacco (Dip or Chew) Second Hand Exposure: No; Hx Alcohol Use: Yes Alcohol type: beer Hx Substance Use: No Preferred Language: Vincentian Communication Ability: Effective Chief Credit Officer Required: No Beliefs That Will Affect Care: None Current Living Situation: Alone Feels Safe at Home: Yes Gender Identity: Male Assistive Devices: Glasses Allergies Allergies Allergy/AdvReac Type Severity Reaction Status Date / Time No Known Allergies Allergy Unverified 09/06/22 16:37 Home Meds Previous Rx's Medication Instructions Recorded metoprolol succinate 50 mg 50 mg PO QAM 30 days #30 tabs 09/05/22 tablet,extended release 24 hr folic acid 1 mg tablet 1 mg PO QAM 30 days #30 tabs 09/07/22 lisinopril 20 mg tablet 20 mg PO QAM 30 days #30 tabs 09/07/22 sertraline 50 mg tablet 50 mg PO QAM 30 days #30 tabs 09/07/22 thiamine HCl (vitamin B1) 100 mg 100 mg PO QAM 30 days #30 tabs 09/07/22 tablet Results & Data (ED) Vital Signs Vital Signs - 24 hr 10/01/22 14:49 10/01/22 18:00 10/01/22 19:16 Temperature 36.5 C Temperature Source Oral Pulse Rate 104 H Pulse Rate [Apical] 85 86 Respiratory Rate 20 16 18 Blood Pressure 216/172 H Blood Pressure [Left Arm] 169/105 H 176/99 H Blood Pressure Mean 186 Blood Pressure Mean [Left Arm] 126 124 Blood Pressure Position [Left Arm] Lying Pulse Oximetry 96 94 96 Oxygen Delivery Method Room Air Room Air Sepsis Recent Fever Within 48 Hours No Sepsis New/Unexplained Change in Mental Status No Sepsis Action Taken by Nursing No Action Required 10/01/22 22:05 Temperature Temperature Source Pulse Rate Pulse Rate [Apical] 109 H Respiratory Rate 18 Blood Pressure Blood Pressure [Left Arm] 169/115 H Blood Pressure Mean Blood Pressure Mean [Left Arm] 133 Blood Pressure Position [Left Arm] Pulse Oximetry 94 Oxygen Delivery Method Room Air Sepsis Recent Fever Within 48 Hours Sepsis New/Unexplained Change in Mental Status Sepsis Action Taken by Nursing Laboratory Data 10/01/22 15:15 10/01/22 15:15 Lab Results 10/01/22 10/01/22 10/01/22 Range/Units 14:57 14:57 15:15 WBC 4.08 L (4.8-10.8) K/ul RBC 5.02 (4.70-6.10) M/uL Hgb 15.9 (14.0-18.0) g/dl Hct 45.1 (42.0-52.0) % MCV 89.8 (80.0-100.0) fL MCH 31.7 (25.0-34.0) pg MCHC 35.3 (32.0-36.0) g/dL RDW Std Deviation 42.2 (36.4-46.3) fL RDW Coeff of Emilie 12.9 (11.5-14.5) % Plt Count 114 L (130-400) K/uL MPV 10.0 (9.4-12.4) fL Immature Gran % (Auto) 0.2 % Neut % (Auto) 63.5 % Lymph % (Auto) 26.7 % [place] % (Auto) 8.1 % Eos % (Auto) 0.5 % Baso % (Auto) 1.0 % Neut # (Auto) 2.59 (1.40-6.50) K/uL Lymph # (Auto) 1.09 L (1.2-3.4) K/uL [place] # (Auto) 0.33 (0.11-0.59) K/uL Eos # (Auto) 0.02 (0-0.50) K/uL Baso # (Auto) 0.04 (0-0.2) K/uL Immature Gran # (Auto) 0.01 (0.01-0.20) K/uL Sodium (136-145) mmol/L Potassium (3.5-5.1) mmol/L Chloride (98-107) mmol/L Carbon Dioxide (21-32) mmol/L Anion Gap (3-11) BUN (6-23) mg/dl Creatinine (0.6-1.4) mg/dl Est Cr Clr Drug Dosing ml/min Est GFR ( Amer) ml/min Est GFR (Non-Af Amer) ml/min BUN/Creatinine Ratio (10-20) Glucose (70-99(Fasting)) mg/dl Calcium (8.6-10.3) mg/dl Total Bilirubin (0.2-1.0) mg/dl AST (13-39) U/L ALT (7-52) U/L Alkaline Phosphatase (34-104) U/L Total Protein (6.0-8.3) gm/dl Albumin (3.4-5.0) gm/dl Globulin (2.5-4.0) gm/dl Albumin/Globulin Ratio (0.9-2) TSH (0.300-4.500) uIu/ml Urine Color Yellow Urine Appearance Clear (Clear) Urine pH 6.0 (4.5-7.5) Ur Specific [place] 1.003 (1.000-1.030) Urine Protein Negative (Negative) Urine Glucose (UA) Negative (Negative) Urine Ketones Negative (Negative) Urine Blood Negative (Negative) Urine Nitrite Negative (Negative) Urine Bilirubin Negative (Negative) Urine Urobilinogen Negative (Negative) Ur Leukocyte Esterase Negative (Negative) Salicylates (3.0-30) mg/dl Urine Opiates Screen Neg (Neg) Ur Methadone, Qual Neg (Neg) Acetaminophen (10-30) ug/ml Urine Barbiturates Neg (Neg) Ur Phencyclidine (PCP) Neg (Neg) U Amphetamin/Meth Scrn Neg (Neg) MDMA (Ecstasy) Screen Neg (Neg) U Benzodiazepines Scrn Neg (Neg) Ur Cocaine Metabolite Neg (Neg) U Marijuana (THC) Screen Neg (Neg) Ethyl Alcohol mg/dL (<10.0) mg/dl SARS-CoV-2, RNA, NAAT (NEGATIVE) 10/01/22 10/01/22 10/01/22 Range/Units 15:15 15:15 15:15 WBC (4.8-10.8) K/ul RBC (4.70-6.10) M/uL Hgb (14.0-18.0) g/dl Hct (42.0-52.0) % MCV (80.0-100.0) fL MCH (25.0-34.0) pg MCHC (32.0-36.0) g/dL RDW Std Deviation (36.4-46.3) fL RDW Coeff of Emilie (11.5-14.5) % Plt Count (130-400) K/uL MPV (9.4-12.4) fL Immature Gran % (Auto) % Neut % (Auto) % Lymph % (Auto) % [place] % (Auto) % Eos % (Auto) % Baso % (Auto) % Neut # (Auto) (1.40-6.50) K/uL Lymph # (Auto) (1.2-3.4) K/uL [place] # (Auto) (0.11-0.59) K/uL Eos # (Auto) (0-0.50) K/uL Baso # (Auto) (0-0.2) K/uL Immature Gran # (Auto) (0.01-0.20) K/uL Sodium 140 (136-145) mmol/L Potassium 3.6 (3.5-5.1) mmol/L Chloride 101 (98-107) mmol/L Carbon Dioxide 24 (21-32) mmol/L Anion Gap 15 H (3-11) BUN 6 (6-23) mg/dl Creatinine 0.74 (0.6-1.4) mg/dl Est Cr Clr Drug Dosing 116.0 ml/min Est GFR ( Amer) 121.2 ml/min Est GFR (Non-Af Amer) 104.6 ml/min BUN/Creatinine Ratio 8.1 L (10-20) Glucose 83 (70-99(Fasting)) mg/dl Calcium 9.0 (8.6-10.3) mg/dl Total Bilirubin 0.9 (0.2-1.0) mg/dl AST 54 H (13-39) U/L ALT 68 H (7-52) U/L Alkaline Phosphatase 59 (34-104) U/L Total Protein 7.0 (6.0-8.3) gm/dl Albumin 4.3 (3.4-5.0) gm/dl Globulin 2.7 (2.5-4.0) gm/dl Albumin/Globulin Ratio 1.6 (0.9-2) TSH 2.364 (0.300-4.500) uIu/ml Urine Color Urine Appearance (Clear) Urine pH (4.5-7.5) Ur Specific [place] (1.000-1.030) Urine Protein (Negative) Urine Glucose (UA) (Negative) Urine Ketones (Negative) Urine Blood (Negative) Urine Nitrite (Negative) Urine Bilirubin (Negative) Urine Urobilinogen (Negative) Ur Leukocyte Esterase (Negative) Salicylates < 3.0 L (3.0-30) mg/dl Urine Opiates Screen (Neg) Ur Methadone, Qual (Neg) Acetaminophen < 3 L (10-30) ug/ml Urine Barbiturates (Neg) Ur Phencyclidine (PCP) (Neg) U Amphetamin/Meth Scrn (Neg) MDMA (Ecstasy) Screen (Neg) U Benzodiazepines Scrn (Neg) Ur Cocaine Metabolite (Neg) U Marijuana (THC) Screen (Neg) Ethyl Alcohol mg/dL (<10.0) mg/dl SARS-CoV-2, RNA, NAAT (NEGATIVE) 10/01/22 10/01/22 Range/Units 15:15 15:15 WBC (4.8-10.8) K/ul RBC (4.70-6.10) M/uL Hgb (14.0-18.0) g/dl Hct (42.0-52.0) % MCV (80.0-100.0) fL MCH (25.0-34.0) pg MCHC (32.0-36.0) g/dL RDW Std Deviation (36.4-46.3) fL RDW Coeff of Emilie (11.5-14.5) % Plt Count (130-400) K/uL MPV (9.4-12.4) fL Immature Gran % (Auto) % Neut % (Auto) % Lymph % (Auto) % [place] % (Auto) % Eos % (Auto) % Baso % (Auto) % Neut # (Auto) (1.40-6.50) K/uL Lymph # (Auto) (1.2-3.4) K/uL [place] # (Auto) (0.11-0.59) K/uL Eos # (Auto) (0-0.50) K/uL Baso # (Auto) (0-0.2) K/uL Immature Gran # (Auto) (0.01-0.20) K/uL Sodium (136-145) mmol/L Potassium (3.5-5.1) mmol/L Chloride (98-107) mmol/L Carbon Dioxide (21-32) mmol/L Anion Gap (3-11) BUN (6-23) mg/dl Creatinine (0.6-1.4) mg/dl Est Cr Clr Drug Dosing ml/min Est GFR ( Amer) ml/min Est GFR (Non-Af Amer) ml/min BUN/Creatinine Ratio (10-20) Glucose (70-99(Fasting)) mg/dl Calcium (8.6-10.3) mg/dl Total Bilirubin (0.2-1.0) mg/dl AST (13-39) U/L ALT (7-52) U/L Alkaline Phosphatase (34-104) U/L Total Protein (6.0-8.3) gm/dl Albumin (3.4-5.0) gm/dl Globulin (2.5-4.0) gm/dl Albumin/Globulin Ratio (0.9-2) TSH (0.300-4.500) uIu/ml Urine Color Urine Appearance (Clear) Urine pH (4.5-7.5) Ur Specific [place] (1.000-1.030) Urine Protein (Negative) Urine Glucose (UA) (Negative) Urine Ketones (Negative) Urine Blood (Negative) Urine Nitrite (Negative) Urine Bilirubin (Negative) Urine Urobilinogen (Negative) Ur Leukocyte Esterase (Negative) Salicylates (3.0-30) mg/dl Urine Opiates Screen (Neg) Ur Methadone, Qual (Neg) Acetaminophen (10-30) ug/ml Urine Barbiturates (Neg) Ur Phencyclidine (PCP) (Neg) U Amphetamin/Meth Scrn (Neg) MDMA (Ecstasy) Screen (Neg) U Benzodiazepines Scrn (Neg) Ur Cocaine Metabolite (Neg) U Marijuana (THC) Screen (Neg) Ethyl Alcohol mg/dL 285.0 H (<10.0) mg/dl SARS-CoV-2, RNA, NAAT NEGATIVE (NEGATIVE) Discharge Plan Visit Data Chief Complaint: Mental Health Evaluation Stated Complaint: [facility] ED Provider: Jose Rincon Forms Stand Alone Forms: My [facility], Suicide Prevention Resources Prescriptions Prescriptions: No Action metoprolol succinate 50 mg Tablet Extended Release 24 Hr 50 mg PO QAM 30 Days Qty: 30 0RF lisinopril 20 mg Tablet 20 mg PO QAM 30 Days Qty: 30 0RF thiamine HCl (vitamin B1) 100 mg Tablet 100 mg PO QAM 30 Days Qty: 30 0RF folic acid 1 mg Tablet 1 mg PO QAM 30 Days Qty: 30 0RF sertraline 50 mg Tablet 50 mg PO QAM 30 Days Qty: 30 0RF Referrals Referrals: Rakesh Delgado DO [Primary Care Provider] -
[2022-10-01 15:20] LABS: Appearance Urine Clear (Clear); Bilirubin Urine Negative (Negative); Blood Urine Negative (Negative); Color Urine Yellow; Glucose Urine UA Negative (Negative); Ketones Urine Negative (Negative); Leukocyte Esterase Urine Negative (Negative); Nitrite Urine Negative (Negative); Protein Urine Negative (Negative); Specific Gravity Urine 1.003 (1.000-1.030); Urobilinogen Urine Negative (Negative)
[2022-10-01 15:55] LABS: Basophils # (auto) 0.04 K/uL (0-0.2); Eosinophils # (auto) 0.02 K/uL (0-0.50); Eosinophils % (auto) 0.5 %; Hematocrit (blood only) 45.1 % (42.0-52.0); Hemoglobin 15.9 g/dl (14.0-18.0); Immature Granulocytes # (auto) 0.01 K/uL (0.01-0.20); Immature Granulocytes % (auto) 0.2 %; Lymphocytes # (auto) 1.09 K/uL (1.2-3.4); Lymphocytes % (auto) 26.7 %; Mean Corpuscular Hemoglobin 31.7 pg (25.0-34.0); Mean Corpuscular Hgb Conc 35.3 g/dL (32.0-36.0); Mean Corpuscular Volume 89.8 fL (80.0-100.0); Monocytes # (auto) 0.33 K/uL (0.11-0.59); Monocytes % (auto) 8.1 %; Neutrophils # (auto) 2.59 K/uL (1.40-6.50); Neutrophils % (auto) 63.5 %; Platelet Count 114 K/uL (130-400); RDW Coefficient of Variation 12.9 % (11.5-14.5); RDW Standard Deviation 42.2 fL (36.4-46.3); Red Blood Count 5.02 M/uL (4.70-6.10); White Blood Count 4.08 K/ul (4.8-10.8)
[2022-10-01 15:56] LABS: Acetaminophen < 3 ug/ml (10-30); Salicylate < 3.0 mg/dl (3.0-30)
[2022-10-01 16:00] LABS: Albumin Globulin Ratio 1.6 (0.9-2); Albumin Level 4.3 gm/dl (3.4-5.0); BUN Creatinine Ratio 8.1 (10-20); Bilirubin,Total 0.9 mg/dl (0.2-1.0); Est GFR (African American) 121.2 ml/min; Est GFR (Non-African American) 104.6 ml/min; Globulin 2.7 gm/dl (2.5-4.0); Potassium 3.6 mmol/L (3.5-5.1)
[2022-10-01 16:07] LABS: Amphetamines+Metham, Urine Neg (Neg); Barbiturates, Urine Neg (Neg); Benzodiazepine, Urine Neg (Neg); Cocaine, Urine Neg (Neg); MDMA (Ecstacy), Urine Neg (Neg); Methadone, Urine Neg (Neg); Opiate, Urine Neg (Neg); Phencyclidine, Urine Neg (Neg)
[2022-10-02] MEDS ORDERED: FOLIC ACID 1 MG TAB PO STA (02:15)
[2022-10-02] MEDS ORDERED: SODIUM CHLORIDE 0.9% 1000ML 1,000 ML IV SCH ×2 (02:15→06:00)
[2022-10-02] MEDS ORDERED: THIAMINE HCL 100 MG TAB PO STA (02:15)
--- NOTE | 2022-10-02 02:21 | Emergency Department Note ---
ED Visit Note Patient signed out to me at change of shift from Dr. Rincon awaiting sobriety and mental health evaluation. Patient seen by case management however due to concern for evolving symptoms of alcohol withdrawal in addition to his suicidal ideation, recommendation for medical admission with psychiatric consultation. Patient noted to be hypertensive and tachycardic and does have a prior history of alcohol withdrawal requiring medical admission. .
[2022-10-02] MEDS ORDERED: LABETALOL HCL IV 5 MG/ML 20ML IV STA (03:32)
[2022-10-02] MEDS ORDERED: clonazePAM 1 MG TAB PO STA (04:27)
[2022-10-02] MEDS ORDERED: POLYETHYLENE (MIRALAX) 17 GM PACK PO PRN (06:00)
[2022-10-02] MEDS ORDERED: THIAMINE HCL 100 MG, FOLIC ACID 1 MG in SODIUM CHLORIDE 0.9% 1000ML 1,000 ML IV SCH (06:00)
[2022-10-02] MEDS ORDERED: GABAPENTIN 600 MG TAB PO ONE (06:00)
[2022-10-02] MEDS ORDERED: LORazepam 2 MG/1 ML VIAL IV PRN ×3 (06:00)
[2022-10-02] MEDS ORDERED: CEROVITE ADV FORMULA TAB PO STA (06:00)
[2022-10-02] MEDS ORDERED: GABAPENTIN 1200MG ALCOHOL WITHDRAWAL LOAD PO STA (06:00)
[2022-10-02] MEDS ORDERED: cloNIDine HCL 0.1 MG TAB PO PRN (06:00)
[2022-10-02] MEDS ORDERED: NITROGLYCERIN SL 0.4 MG/TAB TAB SL PRN (06:00)
[2022-10-02] MEDS ORDERED: Ativan IV Alcohol Withdrawal--Active Protocol IV PRN (06:00)
--- NOTE | 2022-10-02 07:53 | History and Physical Report ---
DATE OF ADMISSION: 10/02/2022. CHIEF COMPLAINT: Suicidal ideation, alcoholism. HISTORY OF PRESENT ILLNESS: This is a 52-year-old male with past medical history significant for nonischemic cardiomyopathy with mild LV dysfunction with EF of 40% to 45%, in 2013, but in 08/2021, EF improved to 50% to 54%, uncontrolled hypertension, history of prolonged QT, presents with suicidal ideation, alcoholism. The patient states since his discharge, is trying to take his medications regularly, but sometimes missing them and he was still drinking 4 to 6 beers daily and once in a while, he drinks 10 to 15 beers. Says he had some issue with his girlfriend and he had thoughts of hurting himself today. He says it is one of those days, but right now his mood is better.In the ER he was having tachycardia and high blood pressure possible alochol withdrawal symptoms and we were called for admission. Resting comfortably, hemodynamically stable, alert and oriented, able to give history. Denies any headache. No chest pain. No shortness of breath. No blurred vision, no earache, no runny nose, no sore throat, no cough, no fevers. No nausea, no sweating. Possible mild tremors. No abdominal pain. Not feeling anxious. Normal bowel and bladder movements. No swelling in the legs. ALLERGIES: No known drug allergies. PAST MEDICAL HISTORY: As mentioned above. PAST SURGICAL HISTORY: Cardiac surgery, cardiac cath, no coronary artery disease, tonsillectomy, remove object from cornea, vasectomy. MEDICATIONS: The patient is supposed to be on folic acid 1 mg p.o. daily, lisinopril 20 mg p.o. daily, metoprolol succinate 50 mg p.o. daily, Zoloft 50 mg p.o. daily, thiamine 100 mg p.o. a.m. FAMILY HISTORY: Significant for father has diabetes, heart disorder. Mother has CHF, hypertension, SLE. SOCIAL HISTORY: No smoking. Alcohol, 4 to 6 beers regularly,but sometimes it can go up to 15 beers a day. No drug use. REVIEW OF SYSTEMS: As per HPI. Rest of the review of systems is negative. PHYSICAL EXAMINATION: GENERAL: The patient is of moderate build, not in acute distress. VITAL SIGNS: Temperature 36.5, pulse 112, respiratory rate 18, blood pressure 203/119, oxygen 94% on room air. HEENT: Pupils equal, round and reactive to light. Oral mucosa moist. NECK: No JVD. No neck masses. CARDIOVASCULAR: S1 and S2 heard. Regular rate and rhythm. No murmur, no gallop. RESPIRATORY SYSTEM: Normal AP diameter. No accessory muscle use. No wheezing, no crackles. ABDOMEN: Soft, bowel sounds present, nontender, no distention. CENTRAL NERVOUS SYSTEM: Alert and oriented. Speech is clear. No facial droop. Obeys simple commands. Moves extremities. EXTREMITIES: No edema, no erythema. LABORATORY DATA: WBC 4, hemoglobin 15.9, hematocrit 45.1, platelets 114. Sodium 140, potassium 3.6, chloride 101, CO2 of 24, BUN 6, creatinine 0.7, serum glucose 83, calcium 9, total bilirubin 0.9, AST 54, ALT 68, alkaline phosphatase 59. TSH is 2.3. Urinalysis negative. Urine drug screen negative. Alcohol level 285. SARS-COVID rapid test negative. ASSESSMENT AND PLAN: This is a 52-year-old male who presents with alcoholism and suicidal ideation. 1. Alcoholism .Banna bag. Continue his home p.o. thiamine, folic acid. Closely monitor . Alcohol withdrawal protocol with Gabapentin and IV Ativan p.r.n. Closely monitor in the [employer] tele. 2. Hypertension . We will continue his home medication of metoprolol, lisinopril and clonidine p.r.n. We will give a dose of IV labetalol now and monitor. 3. Suicidal ideation. We will consult psychiatry one-on-one.Suicidal precautions 4. Deep venous thrombosis prophylaxis, sequential compression devices and heparin subcutaneously. Monitor for platelets. DISPOSITION: Closely monitor in the [employer] tele. PT/OT prior to discharge. Social service to help with discharge planning. Job ID: [id number] [facility]
[2022-10-02] MEDS: FOLIC ACID 1 MG TAB PO SCH (08:51)
[2022-10-02] MEDS: lisinopril 20 MG TAB PO SCH (08:51)
[2022-10-02] MEDS: THIAMINE HCL 100 MG TAB PO SCH (08:51)
[2022-10-02] MEDS: SERTRALINE HCL 50 MG TABLET PO SCH (08:51)
[2022-10-02] MEDS: HEPARIN SOD 5,000 UNIT/0.5 ML VIAL SQ SCH ×2 (08:51→20:16)
[2022-10-02] MEDS: METOPROLOL SUCC 50MG EXT REL TAB PO SCH (08:51)
[2022-10-02] MEDS: GABAPENTIN 600 MG TAB PO SCH ×3 (08:52→22:08)
[2022-10-02] MEDS: LORazepam 2 MG/1 ML VIAL IV PRN (19:39)
--- NOTE | 2022-10-02 20:20 | Psychiatric Consultation ---
Date of Consultation October 02, 2022 Impression / Recommendations Impression Diagnostically consistent with alcohol use disorder as well as unspecified depression and anxiety likely a combination of substance-induced as well as MDD. Acute risk of self-harm is low given denial of SI and no longer with intoxication. Chronic risk of self-harm and harm to others is slightly increased due to substance use with substance use treatment being the most significant modifiable risk factor to reduce acute and chronic risk. He's going to consider his options after our discussion of dual diagnosis vs residential substance use treatment vs intensive outpatient treatment. (1) Alcohol use disorder: (2) Depression, unspecified: Plan -Doesn't require 1-on-1 -Patient is not an imminent danger to self or others and does not meet criteria for involuntary psychiatric commitment -Continue AWSS as well as thiamine and folic acid -Consider starting naltrexone 50mg qd for alcohol use disorder (so long as LFTs remain no > than 3times above normal range) -Continue sertraline 50mg daily, ensure QTc remains <500ms -Will continue to explore his motivation for dual diagnosis vs residential tx vs IOP for substance use as outpatient as he nears medical stability Psych History Identifying Data 52 yo man with history of alcohol use, depression, nonischemic cardiomyopathy with mild LV dysfunction, history of prolonged QTc admitted medically for complicated alcohol withdrawal after presenting with SI with plans. Psychiatry consulted for risk assessment and recommendations. Chief Complaint "I just felt that way because I was intoxicated". History of Present Illness Bill is known to me from recent consultation by our service in late August and his psychiatric admission in late August to [facility]. He presented to the ED with acute intoxication and endorsing SI wiht plan of CO poisoning. Today, now that he is sober is consistently denying any SI. Describes increased stress recently from PFA hearing but that he and his ex-girlfriend have gotten back together and all PFAs have been dropped. She is present with him today and he wants her to be present during our interview. He describes relapsing on alcohol use after his recent discharge and that due to work obligations he missed his therapy appointment intake at [facility]. He's been drinking 6-15 beers per day. He is very motivated to stop drinking and states that being back in the ED was "like a wake up call, I realized that suicide is not worth it, it would negatively effect so many other people" and notes that his daughter, who he hasn't seen in years, visited him in the hospital today and that this was "kind of a sign" that he needs to avoid alcohol and move forward with his life. He has been taking sertraline 50mg daily and wants to join , get back with [facility] and start couples counseling with his girlfriend. He's considering residential substance use treatment but has been to [facility] three times before and never found this very helpful for longer term sobreity. he doesn't feel he needs inpatient psychiatric treatment but rather "I just need to do the outpatient program this time" and likes the sertraline. Further history per psych liason note from today: " Patient seen for initial consult, alert and oriented x 4, denying SI and states it's only when he's drunk he starts to feel that way - denies HI, denies hallucinations/delusions, patient is now back together with his girlfriend and their competing PFAs have been cancelled since last admission - he now has stable housing and they are "doing well", he was unable to attend his [facility] appointment after discharge from [facility] and never called to reschedule, he is still drinking 4-6 beers and is voluntary for a dual diagnosis facility. Denies other questions at this time." Allergies Allergy/AdvReac Type Severity Reaction Status Date / Time No Known Allergies Allergy Unverified 09/06/22 16:37 Home Medications Medication Instructions Recorded Confirmed Type metoprolol succinate 50 mg 50 mg PO QAM 30 days #30 tabs 09/05/22 09/07/22 Rx tablet,extended release 24 hr folic acid 1 mg tablet 1 mg PO QAM 30 days #30 tabs 09/07/22 Rx lisinopril 20 mg tablet 20 mg PO QAM 30 days #30 tabs 09/07/22 Rx sertraline 50 mg tablet 50 mg PO QAM 30 days #30 tabs 09/07/22 Rx thiamine HCl (vitamin B1) 100 mg 100 mg PO QAM 30 days #30 tabs 09/07/22 Rx tablet Patient History Social History Smoking Status: Never smoker Tobacco Type: Smokeless Tobacco (Dip or Chew) Second Hand Exposure: No; Do You Dip or Chew Tobacco: No; Tobacco Cessation Education Requested by Patient: No Hx Alcohol Use: Yes Alcohol type: beer Hx Substance Use: No Preferred Language: Latvian Communication Ability: Effective 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 Beliefs That Will Affect Care: Islam Current Living Situation: Significant Other Other Information That Helps Us Care for You: No Feels Safe at Home: Yes Safety Concerns: Feels Safe At This Time Gender Identity: Male Assistive Devices: Glasses Physical Exam Psychiatric: Orientation: alert and oriented x 3 Apperance: appropriately dressed and appropriately groomed Eye Contact: good eye contact Motor Behavior: no abnormal motor movements Speech: normal rate/rhythm/volume of speech Affect: + constricted affect Mood: + anxious mood Thought Process: goal directed thought process Thought Content: reality based without delusions Suicidal Thoughts: denies suicidal thoughts Homicidal Thoughts: denies homicidal thoughts Hallucinations: no auditory hallucinations and no visual hallucinations Cognition: recent memory grossly intact, remote memory grossly intact, attention grossly intact and language grossly intact Estimated Intelligence: consistent with education level Insight: + fair insight Judgment: + limited judgement Vital Signs (Past 24 Hours): Last Vital Signs Temp 37.4 C 10/02/22 18:05 Pulse 87 10/02/22 18:48 Resp 18 10/02/22 18:05 BP 170/95 H 10/02/22 18:05 Pulse Ox 94 10/02/22 18:05 O2 Del Method Room Air 10/02/22 18:05 Review of Systems All systems reviewed & are unremarkable except as noted in HPI & below Results & Data (PSY) Medications Administered Folic Acid (Folic Acid 1 Mg Tab) 1 mg PO QAM [facility] Stop: 11/01/22 08:59 Last Admin: 10/02/22 08:51 Dose: 1 mg Documented By: HUDSON Heparin Sodium (Porcine) (Heparin Sod 5,000 Unit/0.5 Ml Vial) 5,000 units SQ Q12 RAKEL Stop: 11/01/22 08:59 Last Admin: 10/02/22 08:51 Dose: 5,000 units Documented By: HUDSON Lisinopril (Lisinopril 20 Mg Tab) 20 mg PO QAM RAKEL Stop: 11/01/22 08:59 Last Admin: 10/02/22 08:51 Dose: 20 mg Documented By: HUDSON Lorazepam (Lorazepam 2 Mg/1 Ml Vial) 1 mg IV UD PRN; Protocol PRN Reason: EtOH Withdrawal AWSS Score 6,7 Stop: 11/01/22 05:59 Last Admin: 10/02/22 13:16 Dose: 1 mg Documented By: SEAN Lorazepam (Lorazepam 2 Mg/1 Ml Vial) 0.5 mg IV Q6H PRN PRN Reason: Anxiety/Agitation Stop: 11/01/22 17:25 Last Admin: 10/02/22 19:39 Dose: 0.5 mg Documented By: MOJGAN Metoprolol Succinate (Metoprolol Succ 50mg Ext Rel Tab) 50 mg PO [facility] Stop: 11/01/22 08:59 Last Admin: 10/02/22 08:51 Dose: 50 mg Documented By: HUDSON Sertraline HCl (Sertraline Hcl 50 Mg Tablet) 50 mg PO [facility] Stop: 11/01/22 08:59 Last Admin: 10/02/22 08:51 Dose: 50 mg Documented By: HUDSON Thiamine HCl (Thiamine Hcl 100 Mg Tab) 100 mg PO [facility] Stop: 11/01/22 08:59 Last Admin: 10/02/22 08:51 Dose: 100 mg Documented By: HUDSON Coding Level of Care Code 71717 IN/OBS CONSULT LVL 4,60M Diagnoses Alcohol use disorder F10.90 Depression, unspecified F32.A
[2022-10-03] MEDS: LORazepam 2 MG/1 ML VIAL IV PRN (04:34)
[2022-10-03] MEDS: GABAPENTIN 600 MG TAB PO SCH ×2 (06:11→15:21)
[2022-10-03] MEDS: FOLIC ACID 1 MG TAB PO SCH (07:54)
[2022-10-03] MEDS: METOPROLOL SUCC 50MG EXT REL TAB PO SCH (07:55)
[2022-10-03] MEDS: HEPARIN SOD 5,000 UNIT/0.5 ML VIAL SQ SCH (07:55)
[2022-10-03] MEDS: SERTRALINE HCL 50 MG TABLET PO SCH (07:55)
[2022-10-03] MEDS: THIAMINE HCL 100 MG TAB PO SCH (07:55)
[2022-10-03] MEDS: lisinopril 20 MG TAB PO SCH (07:55)
--- NOTE | 2022-10-03 13:40 | Psychiatric Progress Note ---
Date of Service October 03, 2022 Impression / Recommendations Impression Diagnostically consistent with alcohol use disorder as well as unspecified depression and anxiety likely a combination of substance-induced as well as MDD. Acute risk of self-harm is low given denial of SI, no longer with intoxication and motivated to participate in outpatient dual diagnosis IOP and attend AA. Chronic risk of self-harm and harm to others is slightly increased, moderate, due to substance use with substance use treatment being the most significant modifiable risk factor to reduce acute and chronic risk. 10/03/2022: He continues to deny SI, mood has improved and desires discharge with outpatient follow-up for therapy and plans to attend AA and start dual diagnosis IOP and has confirmed intake appointment with this. No 302 criteria. (1) Alcohol use disorder: (2) Depression, unspecified: Plan -Safe for discharge from psychiatric standpoint -Consider starting naltrexone 50mg qd for alcohol use disorder (so long as LFTs remain no > than 3times above normal range), he plans to consider this and will discuss it with his PCP -Continue sertraline 50mg daily, ensure QTc remains <500ms Interval History Identifying Information 52 yo man with history of alcohol use, depression, nonischemic cardiomyopathy with mild LV dysfunction, history of prolonged QTc admitted medically for complicated alcohol withdrawal after presenting with SI with plans. Psychiatry consulted for risk assessment and recommendations. Chief Complaint "I'm good". Review of Systems Notes slept well, eating well Subjective Subjective Patient was seen & assessed and interval progress reviewed. Aleksander is joined by his girlfriend at bedside. He is comfortable with her being present while we meet. He reports "good" mood and denies SI. Has not experienced any SI since he was intoxicated. He called [facility] and has intake appointment for 10/14 at 6:30pm which allows him to meet after work. He is going to do their IOP substance use program. He also reached out to a group activities aide of and is planning to start attending daily meetings. Reflected on how he cannot control his drinking once he starts and needs to avoid it altogether. No side effects from his sertraline wants to continue this. Plans to talk with his PCP about antiabuse versus naltrexone, we reviewed some of the pros and cons. He wants to return home and do outpatient follow-up. Verbally safety planned ways he would seek help if SI occurs in the future and reviewed reasons to return to the ED i.e. should SI re-occur, symptoms worsen or if he feels unable to remain safe. Physical Exam Psychiatric Orientation: alert and oriented x 3 Apperance: appropriately dressed and appropriately groomed Eye Contact: good eye contact Motor Behavior: no abnormal motor movements Speech: normal rate/rhythm/volume of speech Affect: euthymic affect Mood: no depressed mood and no anxious mood Thought Process: goal directed thought process Thought Content: reality based without delusions Suicidal Thoughts: denies suicidal thoughts Homicidal Thoughts: denies homicidal thoughts Hallucinations: no auditory hallucinations and no visual hallucinations Cognition: recent memory grossly intact, remote memory grossly intact, attention grossly intact and language grossly intact Estimated Intelligence: consistent with education level Insight: + fair insight Judgment: + limited judgement Vital Signs (Past 24 Hours) Last Vital Signs Temp 37.1 C 10/03/22 11:41 Pulse 61 10/03/22 11:41 Resp 16 10/03/22 11:41 BP 151/85 H 10/03/22 11:41 Pulse Ox 94 10/03/22 11:41 O2 Del Method Room Air 10/03/22 11:41 Results & Data ([facility]) Current Inpatient Medications Current Inpatient Medications: Current Inpatient Medications Clonidine HCl (Clonidine Hcl 0.1 Mg Tab) 0.1 mg PO Q6H PRN PRN Reason: Hypertension Stop: 11/01/22 05:59 Last Admin: 10/03/22 04:34 Dose: 0.1 mg Folic Acid (Folic Acid 1 Mg Tab) 1 mg PO QAM RAKEL Stop: 11/01/22 08:59 Last Admin: 10/03/22 07:54 Dose: 1 mg Gabapentin (Gabapentin 600 Mg Tab) 600 mg PO Q24H RAKEL Stop: 10/05/22 15:16 Gabapentin (Gabapentin 600 Mg Tab) 600 mg PO Q12H RAKEL Stop: 10/04/22 15:16 Gabapentin (Gabapentin 600 Mg Tab) 600 mg PO Q8H RAKEL Stop: 10/03/22 15:16 Last Admin: 10/03/22 06:11 Dose: 600 mg Heparin Sodium (Porcine) (Heparin Sod 5,000 Unit/0.5 Ml Vial) 5,000 units SQ Q12 RAKEL Stop: 11/01/22 08:59 Last Admin: 10/03/22 07:55 Dose: 5,000 units Lisinopril (Lisinopril 20 Mg Tab) 20 mg PO [facility] Stop: 11/01/22 08:59 Last Admin: 10/03/22 07:55 Dose: 20 mg Lorazepam (Lorazepam 2 Mg/1 Ml Vial) 2 mg IV UD PRN; Protocol PRN Reason: EtOH Withdrawal AWSS Score 8,9 Stop: 11/01/22 05:59 Lorazepam (Lorazepam 2 Mg/1 Ml Vial) 3 mg IV ONCE PRN; Protocol PRN Reason: EtOH Withdrawal AWSS Score 10+ Lorazepam (Lorazepam 2 Mg/1 Ml Vial) 1 mg IV UD PRN; Protocol PRN Reason: EtOH Withdrawal AWSS Score 6,7 Stop: 11/01/22 05:59 Last Admin: 10/02/22 13:16 Dose: 1 mg Lorazepam (Lorazepam 2 Mg/1 Ml Vial) 0.5 mg IV Q6H PRN PRN Reason: Anxiety/Agitation Stop: 11/01/22 17:25 Last Admin: 10/03/22 04:34 Dose: 0.5 mg Metoprolol Succinate (Metoprolol Succ 50mg Ext Rel Tab) 50 mg PO [facility] Stop: 11/01/22 08:59 Last Admin: 10/03/22 07:55 Dose: 50 mg Nitroglycerin (Nitroglycerin Sl 0.4 Mg/Tab Tab) 0.4 mg SL UD PRN PRN Reason: Chest Pain Stop: 11/01/22 05:59 Polyethylene Glycol (Polyethylene (Miralax) 17 Gm Pack) 17 gm PO DAILY PRN PRN Reason: Constipation Stop: 11/01/22 05:59 Sertraline HCl (Sertraline Hcl 50 Mg Tablet) 50 mg PO [facility] Stop: 11/01/22 08:59 Last Admin: 10/03/22 07:55 Dose: 50 mg Thiamine HCl (Thiamine Hcl 100 Mg Tab) 100 mg PO [facility] Stop: 11/01/22 08:59 Last Admin: 10/03/22 07:55 Dose: 100 mg
[2022-10-04] MEDS ORDERED: GABAPENTIN 600 MG TAB PO SCH (03:15)
--- NOTE | 2022-10-04 17:53 | Electrocardiogram Report ---
Test Reason : Blood Pressure : / mmHG Vent. Rate : 061 BPM Atrial Rate : 061 BPM P-R Int : 196 ms QRS Dur : 104 ms QT Int : 472 ms P-R-T Axes : 046 006 -14 degrees QTc Int : 475 ms Normal sinus rhythm Voltage criteria for left ventricular hypertrophy T wave abnormality, consider inferior ischemia Abnormal ECG When compared with ECG of 03-SEP-2022 08:34, Sinus rhythm has replaced Atrial fibrillation Vent. rate has decreased BY 44 BPM Nonspecific T wave abnormality no longer evident in Lateral leads Confirmed by Rob Maciel ([id number]) on 10/04/2022 5:53:16 PM Referred By: REFERRED SELF Confirmed By:Emiliano Maciel
[2022-10-05] MEDS ORDERED: GABAPENTIN 600 MG TAB PO SCH (15:15)
--- NOTE | 2022-10-11 19:30 | Hospitalist Progress Note ---
Date of Service October 03, 2022 delayed entry date of service noted above Assessment & Plan (1) Alcohol use disorder: (2) Major depressive disorder, recurrent, severe without psychotic features: (3) Hypertension: Plan: ASSESSMENT AND PLAN: This is a 52-year-old male who presents with alcoholism and suicidal ideation. 1. Alcoholism . placed on Alcohol withdrawal protocol including Gabapentin taper patient did not show signs of DT's declines alcohol rehab discharged on remaining doses of Gabapentin taper x 2 days 2. Hypertension . BP elevated secondary to alcohol intoxication, stress BP improving but still not at goal increase Lisinopril from 20 to 30mg po daily continue metoprolol, lisinopril ff up with PCP 3. Suicidal ideation. evaluated by Psychiatry service, recommendations by Dr. Ulloa: -Safe for discharge from psychiatric standpoint -Consider starting naltrexone 50mg qd for alcohol use disorder (so long as LFTs remain no > than 3times above normal range), he plans to consider this and will discuss it with his PCP -Continue sertraline 50mg daily, ensure QTc remains <500ms plan of care discussed with patient in detail and at length all questions answered he is understanding, agreeable, comfortable with the plan of care Admission and Anticipated Discharge Date Admission Date: October 02, 2022 Subjective ff up for alcohol withdrawal, suicidal ideation, etc seen resting in bed, sititing up comfortable not in distress states he feels better overall no chest pain, dyspnea, palpitations, dizziness denies tremors, anxiety, confusion, etc states mood is much better, denies depression, etc no other new symptoms states he is ready and would like to be discharged Review of Systems Review of Systems: all noted and negative except for above Physical Exam Physical Exam: General- oriented x 3, not in distress, speaks in sentences with no effort or accessory muscle use Eyes- anicteric Neck- no JVD Lungs- clear BS BL no rales/wheezing Heart- normal rate, regular rhythm; no murmurs Abdomen- normal bowel sounds, nondistended, soft, nontender Extremities- no pretibial edema, no calf tenderness no tremors Neuro- alert, oriented x 3; no gross focal neurologic deficits Skin- warm & dry
--- NOTE | 2022-10-11 19:34 | Discharge Summary ---
Discharge Summary Date of Service October 11, 2022 delayed entry date of service 10/04/22 Notes For Next Care Provider Medication Changes From Visit Gabapentin-to prevent alcohol withdrawal; do not take if you decide to resume consuming alcohol Increase lisinopril from 20 mg to 30 mg daily Folic acid, thiamine-supplements Admission HPI Per Admitting Provider HISTORY OF PRESENT ILLNESS: This is a 52-year-old male with past medical history significant for nonischemic cardiomyopathy with mild LV dysfunction with EF of 40% to 45%, in 2013, but in 08/2021, EF improved to 50% to 54%, uncontrolled hypertension, history of prolonged QT, presents with suicidal ideation, alcoholism. The patient states since his discharge, is trying to take his medications regularly, but sometimes missing them and he was still drinking 4 to 6 beers daily and once in a while, he drinks 10 to 15 beers. Says he had some issue with his girlfriend and he had thoughts of hurting himself today. He says it is one of those days, but right now his mood is better.In the ER he was having tachycardia and high blood pressure possible alochol withdrawal symptoms and we were called for admission. Resting comfortably, hemodynamically stable, alert and oriented, able to give history. Denies any headache. No chest pain. No shortness of breath. No blurred vision, no earache, no runny nose, no sore throat, no cough, no fevers. No nausea, no sweating. Possible mild tremors. No abdominal pain. Not feeling anxious. Normal bowel and bladder movements. No swelling in the legs. Admission Exam Per Admitting Provider GENERAL: The patient is of moderate build, not in acute distress. VITAL SIGNS: Temperature 36.5, pulse 112, respiratory rate 18, blood pressure 203/119, oxygen 94% on room air. HEENT: Pupils equal, round and reactive to light. Oral mucosa moist. NECK: No JVD. No neck masses. CARDIOVASCULAR: S1 and S2 heard. Regular rate and rhythm. No murmur, no gallop. RESPIRATORY SYSTEM: Normal AP diameter. No accessory muscle use. No wheezing, no crackles. ABDOMEN: Soft, bowel sounds present, nontender, no distention. CENTRAL NERVOUS SYSTEM: Alert and oriented. Speech is clear. No facial droop. Obeys simple commands. Moves extremities. EXTREMITIES: No edema, no erythema. Principal Dx & Hospital Course #1 = Principal Diagnosis (1) Alcohol use disorder: (2) Major depressive disorder, recurrent, severe without psychotic features: (3) Hypertension: ASSESSMENT AND PLAN: This is a 52-year-old male who presents with alcoholism and suicidal ideation. 1. Alcoholism . placed on Alcohol withdrawal protocol including Gabapentin taper patient did not show signs of DT's declines alcohol rehab discharged on remaining doses of Gabapentin taper x 2 days 2. Hypertension . BP elevated secondary to alcohol intoxication, stress BP improving but still not at goal increase Lisinopril from 20 to 30mg po daily continue metoprolol, lisinopril ff up with PCP 3. Suicidal ideation. evaluated by Psychiatry service, recommendations by Dr. Ulloa: -Safe for discharge from psychiatric standpoint -Consider starting naltrexone 50mg qd for alcohol use disorder (so long as LFTs remain no > than 3times above normal range), he plans to consider this and will discuss it with his PCP -Continue sertraline 50mg daily, ensure QTc remains <500ms plan of care discussed with patient in detail and at length all questions answered he is understanding, agreeable, comfortable with the plan of care Discharge Exam General- oriented x 3, not in distress, speaks in sentences with no effort or accessory muscle use Eyes- anicteric Neck- no JVD Lungs- clear BS BL no rales/wheezing Heart- normal rate, regular rhythm; no murmurs Abdomen- normal bowel sounds, nondistended, soft, nontender Extremities- no pretibial edema, no calf tenderness no tremors Neuro- alert, oriented x 3; no gross focal neurologic deficits Skin- warm & dry Updated Medication List Medication Instructions Recorded Confirmed Type gabapentin 600 mg tablet 600 mg PO Q8H #4 tabs 10/03/22 Rx Hospital Stay Data Consultations 10/02/22 02:29 ED Decision to Admit Stat 10/02/22 08:00 Consult Psychiatry Routine Pending Results Patient Have Any Pending Studies at Discharge: No Discharge Instructions Given to Patient (Per Discharging Provider) PLEASE REFER TO YOUR NEW MEDICATION LIST AND FOLLOW INSTRUCTIONS CAREFULLY. YOUR NEW MEDICATIONS INCLUDE: Gabapentin-to prevent alcohol withdrawal; do not take if you decide to resume consuming alcohol Increase lisinopril from 20 mg to 30 mg daily Folic acid, thiamine-supplements Please take a multivitamin daily. PLEASE CALL YOUR PRIMARY CARE PHYSICIAN OR RETURN TO THE ER IF WITH WORSENING OF SYMPTOMS, INCLUDING Worsening depression/anxiety, tremors, confusion, sweating, seizure, chest pain, shortness of breath, palpitations, dizziness etc. FOLLOW UP WITH PRIMARY CARE PHYSICIAN IN 1 WEEK. PLEASE KEEP YOUR APPOINTMENT WITH [facility] SCHEDULED. Total Time Total Time Spent Total Time Spent (In Minutes): > 30 minutes
== END 2022-10-03 15:40 | disposition home or self-care (01) | DRG 897 ==
LOC: ED 14:42 → SUATTDRO 10-02 03:07 → EDINP 10-02 03:07 → 2W 10-02 06:01